=== PATIENT | male | born 1980 | race Caucasian/White ===

== ENCOUNTER 2021-03-26 17:57 | Inpatient (IN) | payer MEDICAID, OTHER ==
[~2021-03-26] VITALS: Ht 177.8 cm; Wt 226.7 kg
[2021-03-26] MEDS ORDERED: ONDANSETRON 2MG/ML, 2ML IVPush ONE (19:00)
[2021-03-26] MEDS ORDERED: SODIUM CHLORIDE FLUSH 10ML SYR IVF ONE (19:00)
[2021-03-26] MEDS ORDERED: MORPHINE SULFATE 4 MG/ML, 1ML ONE ×2 (19:09→20:16)
[2021-03-26] MEDS ORDERED: ONDANSETRON 2MG/ML, 2ML ONE (19:09)
[2021-03-26] MEDS: MORPHINE SULFATE 4 MG/ML, 1ML IVPush PRN ×2 (19:11→20:18)
[2021-03-26 19:14] LABS: BASOPHILS % (AUTO) 1 % (0-1); EOSINOPHILS % (AUTO) 0 % (1-7); LYMPHOCYTES % (AUTO) 9 % (22-44); MEAN CORPUSCULAR HEMOGLOBIN 31.1 pg (27.5-34.5); MEAN CORPUSCULAR HGB CONC 35.1 g/dL (33.2-36.2); MEAN PLATELET VOLUME 8.4 fL (7.4-10.4); MONOCYTES % (AUTO) 7 % (2-9); NEUTROPHILS % (AUTO) 84 % (42-75); PLATELET COUNT 361 x10^3/uL (130-400); RED BLOOD COUNT 3.75 x10^6/uL (4.38-5.82); RED CELL DISTRIBUTION WIDTH 13.9 % (9.4-14.8)
[2021-03-26 19:27] LABS: ALANINE AMINOTRANSFERASE 16 U/L (12-78); ALBUMIN 2.3 g/dL (3.4-5.0); ANION GAP 8 mmol/L (5-15); CALCIUM 8.5 mg/dL (8.5-10.1); CHLORIDE 99 mmol/L (98-107); CREATININE 1.13 mg/dL (0.7-1.3)
[2021-03-26 19:34] LABS: ALKALINE PHOSPHATASE 101 U/L (45-117); BILIRUBIN,TOTAL 0.7 mg/dL (0.2-1.0); TOTAL PROTEIN 7.9 g/dL (6.4-8.2)
[2021-03-26 19:52] LABS: C-REACTIVE PROTEIN, QUANT > 19.00 mg/dL (0.02-0.49); HCT (SEDRATE) 33.3 % (39.2-51.8)
[2021-03-26] MEDS ORDERED: OMNIPAQUE 350 MG/ML, 150 ML BOTTLE ONE (20:44)
--- NOTE | 2021-03-26 21:09 | NUR ---
PT LAYING IN BED, A/OX4, ALL NEEDS IN REACH, CALL LIGHT IN REACH, NAD AT THIS TIME, FAMILY AT BEDSIDE
[2021-03-26] MEDS ORDERED: VANCOMYCIN 2,500 MG in SODIUM CHLORIDE 0.9% 500 ML IV ONE (22:00)
[2021-03-26] MEDS ORDERED: VANCOMYCIN PER PHARMACY MC PRN (22:00)
[2021-03-26] MEDS ORDERED: CEFTRIAXONE 1,000 MG in DEXTROSE 5% 50 ML IVPB ONE (22:00)
[2021-03-26] MEDS ORDERED: SODIUM CHLORIDE 0.9% 1,000ML IVBOLUS ONE (22:00)
[2021-03-26 23:41] LABS: MICROSCOPIC INDICATED
[2021-03-27] MEDS ORDERED: VANCOMYCIN PER PHARMACY MC PRN
[2021-03-27 00:27] VITALS: BP 141/89
[2021-03-27] MEDS ORDERED: PHARMACOKINETIC CONSULTATION MC ONE (00:30)
[2021-03-27] MEDS ORDERED: BACLOFEN 10 MG TABLET PO PRN (00:30)
[2021-03-27] MEDS ORDERED: POLYETHYLENE GLYCOL 17 GM PACKET PO PRN (00:30)
[2021-03-27] MEDS ORDERED: ONDANSETRON 2MG/ML, 2ML IVPush PRN (00:30)
[2021-03-27] MEDS ORDERED: PHARMACOKINETIC MONITORING MC PRN (00:30)
[2021-03-27] MEDS ORDERED: BISACODYL 10 MG SUPP PR PRN (00:30)
[2021-03-27] MEDS: morphine SULFATE 10 MG/ML, 1ML IVPush PRN ×7 (00:47→18:24)
[2021-03-27] MEDS: HEPARIN 5,000 UNITS/ML, 1ML SQ SCH ×2 (01:00→07:51)
[2021-03-27] MEDS: LISINOPRIL 10 MG TABLET PO SCH ×3 (01:01→21:00)
[2021-03-27] MEDS: OXYcodone IR 5MG TABLET PO PRN ×4 (02:34→12:31)
[2021-03-27] MEDS: INSULIN LISPRO 100 UNITS/ML, PEN SQ-INSULIN SCH ×5 (02:35→21:00)
[2021-03-27] MEDS: SODIUM CHLORIDE 0.9% 1,000 ML IV SCH ×2 (03:12→08:30)
[2021-03-27 05:05] LABS: BASOPHILS % (AUTO) 0 % (0-1); EOSINOPHILS % (AUTO) 0 % (1-7); LYMPHOCYTES % (AUTO) 7 % (22-44); MEAN CORPUSCULAR HEMOGLOBIN 31.3 pg (27.5-34.5); MEAN CORPUSCULAR HGB CONC 34.5 g/dL (33.2-36.2); MEAN PLATELET VOLUME 8.5 fL (7.4-10.4); MONOCYTES % (AUTO) 8 % (2-9); NEUTROPHILS % (AUTO) 84 % (42-75); PLATELET COUNT 337 x10^3/uL (130-400); RED BLOOD COUNT 3.51 x10^6/uL (4.38-5.82); RED CELL DISTRIBUTION WIDTH 13.8 % (9.4-14.8)
[2021-03-27 05:17] LABS: ANION GAP 11 mmol/L (5-15); CALCIUM 8.4 mg/dL (8.5-10.1); CHLORIDE 98 mmol/L (98-107)
[2021-03-27 05:21] LABS: CHOL/HDL RATIO 4.6; CHOLESTEROL, TOTAL 133 mg/dL (140-239); CREATININE 1.18 mg/dL (0.7-1.3); HDL CHOL % 22 % (26-37); HDL CHOLESTEROL (DIRECT) 29 mg/dL (40-60); LDL CHOLESTEROL,CALCULATED 65 mg/dL (54-169); LDL/HDL RATIO 2.2 (0.5-3.0); TRIGLYCERIDES 196 mg/dL (50-200); VLDL CHOLESTEROL 39 mg/dL (0-25)
[2021-03-27] MEDS ORDERED: OMNIPAQUE 350 MG/ML, 150 ML BOTTLE ONE (07:38)
[2021-03-27] MEDS: SENNA/DOCUSATE TABLET PO SCH (07:53)
[2021-03-27] MEDS ORDERED: VANCOMYCIN 2,500 MG in SODIUM CHLORIDE 0.9% 500 ML IV SCH (08:00)
[2021-03-27 08:42] VITALS: BP 152/85
[2021-03-27 08:58] VITALS: BP 146/86
[2021-03-27] MEDS ORDERED: INSULIN GLARGINE 100 UNITS/ML, PEN SQ-INSULIN SCH (13:00)
[2021-03-27] MEDS ORDERED: PINK LADY ENEMA 490 ML BOTTLE PR ONE (13:00)
[2021-03-27] MEDS: DEXAMETHASONE 10 MG in SODIUM CHLORIDE 0.9% 50 ML IV SCH ×2 (13:14→19:00)
[2021-03-27] MEDS: FUROSEMIDE 40 MG TABLET PO SCH (13:14)
[2021-03-27 14:21] VITALS: BP 112/72
[2021-03-27] MEDS: VANCOMYCIN 2,500 MG in SODIUM CHLORIDE 0.9% 500 ML IV SCH (16:00)
[2021-03-27] MEDS ORDERED: LORazepam 2 MG/ML, 1ML IVPush ONE (16:00)
[2021-03-27] MEDS ORDERED: GADOTERATE 7.5 MMOL/15ML SYR ONE (16:59)
[2021-03-27] MEDS ORDERED: GADOTERATE 10 MMOL/20ML SYR ONE (16:59)
[2021-03-27] MEDS: ERTAPENEM 1 GM in SODIUM CHLORIDE 0.9% 50 ML IV SCH (20:00)
[2021-03-27] MEDS ORDERED: EPINEPHRINE 1 MG/ML, 1ML ONE (20:12)
[2021-03-27] MEDS ORDERED: BUPIVACAINE/PF 0.5% ONE (20:12)
[2021-03-27] MEDS ORDERED: THROMBIN 20,000 UNIT VIAL TP ONE (20:13)
[2021-03-27 20:36] VITALS: BP 140/86
[2021-03-27] MEDS ORDERED: CEFTRIAXONE 1,000 MG in DEXTROSE 5% 50 ML IVPB SCH (22:00)
[2021-03-27] MEDS ORDERED: FENTANYL PF 250 MCG/5ML ONE (23:16)
[2021-03-27] MEDS ORDERED: MIDAZOLAM 1 MG/ML, 2ML ONE (23:16)
[2021-03-27] MEDS ORDERED: PROPOFOL 10 MG/ML, 20ML ONE (23:16)
[2021-03-27] MEDS ORDERED: LIDOCAINE-MPF 2% ,5ML ONE (23:17)
[2021-03-27] MEDS ORDERED: ONDANSETRON 2MG/ML, 2ML ONE (23:17)
[2021-03-27] MEDS ORDERED: ROCURONIUM 10MG/ML,5ML ONE (23:17)
[2021-03-27] MEDS ORDERED: CEFAZOLIN 1,000 MG ONE (23:24)
[2021-03-27] MEDS ORDERED: SUGAMMADEX 200 MG/2 ML IVPush ONE (23:35)
[2021-03-28] MEDS ORDERED: CEFAZOLIN 1,000 MG IVPush ONE (00:59)
[2021-03-28] MEDS ORDERED: hydrALAzine 20 MG/ML, 1ML IV PRN (02:00)
[2021-03-28] MEDS ORDERED: OXYcodone 5 MG/5 ML ORAL.SOL UDC PO PRN (02:00)
[2021-03-28] MEDS ORDERED: DIAZEPAM 5 MG/ML, 2ML IVPush PRN (02:00)
[2021-03-28] MEDS ORDERED: ACETAMINOPHEN 325 MG TABLET PO PRN (02:00)
[2021-03-28] MEDS ORDERED: HYDROmorphone 1 MG/ML, 1ML INJ IVPush PRN (02:00)
[2021-03-28] MEDS ORDERED: METHOCARBAMOL 1,000 MG in DEXTROSE 5% 100 ML IV PRN (02:00)
[2021-03-28] MEDS ORDERED: ONDANSETRON 2MG/ML, 2ML IVPush PRN (02:00)
[2021-03-28] MEDS ORDERED: MEPERIDINE/PF 25MG/0.5ML IVPush PRN (02:00)
[2021-03-28] MEDS ORDERED: FENTANYL PF 100 MCG/2ML IV PRN (02:00)
[2021-03-28] MEDS ORDERED: LABETALOL 5MG/ML, 20ML IV PRN (02:00)
[2021-03-28] MEDS: DEXAMETHASONE 10 MG in SODIUM CHLORIDE 0.9% 50 ML IV SCH (03:55)
[2021-03-28] MEDS: VANCOMYCIN 2,500 MG in SODIUM CHLORIDE 0.9% 500 ML IV SCH (04:54)
[2021-03-28] MEDS: LABETALOL 5MG/ML, 20ML IVPush PRN ×3 (04:55→13:50)
[2021-03-28 05:58] LABS: BASOPHILS % (AUTO) 0 % (0-1); EOSINOPHILS % (AUTO) 0 % (1-7); LYMPHOCYTES % (AUTO) 5 % (22-44); MEAN CORPUSCULAR HGB CONC 34.1 g/dL (33.2-36.2); MEAN PLATELET VOLUME 8.2 fL (7.4-10.4); MONOCYTES % (AUTO) 4 % (2-9); NEUTROPHILS % (AUTO) 90 % (42-75); PLATELET COUNT 358 x10^3/uL (130-400); RED BLOOD COUNT 3.32 x10^6/uL (4.38-5.82); RED CELL DISTRIBUTION WIDTH 14.2 % (9.4-14.8)
[2021-03-28 06:04] LABS: ANION GAP 10 mmol/L (5-15); CALCIUM 8.1 mg/dL (8.5-10.1); CHLORIDE 99 mmol/L (98-107); CREATININE 1.67 mg/dL (0.7-1.3)
[2021-03-28] MEDS ORDERED: SODIUM CHLORIDE 0.9% 1,000ML IVBOLUS ONE (06:30)
[2021-03-28] MEDS: METOPROLOL TARTRATE 50 MG TAB PO SCH ×2 (06:42→18:07)
[2021-03-28] MEDS: INSULIN LISPRO 100 UNITS/ML, PEN SQ-INSULIN SCH ×7 (06:43→20:24)
[2021-03-28] MEDS ORDERED: PINK LADY ENEMA 490 ML BOTTLE PR ONE (09:00)
[2021-03-28] MEDS ORDERED: INSULIN GLARGINE 100 UNITS/ML, PEN SQ-INSULIN SCH ×2 (09:00→21:00)
[2021-03-28] MEDS: SENNA/DOCUSATE TABLET PO SCH (09:10)
[2021-03-28] MEDS: OXYcodone IR 5MG TABLET PO PRN ×3 (09:10→20:30)
[2021-03-28] MEDS: FUROSEMIDE 40 MG TABLET PO SCH (09:11)
[2021-03-28] MEDS: DEXAMETHASONE 4 MG/ML, 1ML IVPush SCH ×3 (09:57→23:15)
[2021-03-28] MEDS ORDERED: SODIUM CHLORIDE 0.9% IVPB SCH (10:00)
[2021-03-28] MEDS ORDERED: DAPTOMYCIN IVPB SCH (10:00)
[2021-03-28] MEDS: LACTULOSE 20 GM/30 ML UDC PO SCH ×2 (10:09→20:17)
[2021-03-28] MEDS: hydrALAzine 20 MG/ML, 1ML IV PRN (10:31)
[2021-03-28] MEDS: morphine SULFATE 10 MG/ML, 1ML IVPush PRN (11:32)
[2021-03-28] MEDS: ERTAPENEM 1 GM in SODIUM CHLORIDE 0.9% 50 ML IV SCH (20:17)
[2021-03-28] MEDS ORDERED: ALBUTEROL SULFATE 2.5 MG/3 ML ONE (23:14)
[2021-03-28] MEDS ORDERED: ALBUTEROL SULFATE 2.5 MG/3 ML NPPB PRN (23:30)
[2021-03-29] MEDS: DEXAMETHASONE 4 MG/ML, 1ML IVPush SCH ×4 (04:25→20:22)
[2021-03-29] MEDS: LABETALOL 5MG/ML, 20ML IVPush PRN (04:26)
[2021-03-29 04:32] LABS: BASOPHILS % (AUTO) 0 % (0-1); EOSINOPHILS % (AUTO) 0 % (1-7); LYMPHOCYTES % (AUTO) 4 % (22-44); MEAN CORPUSCULAR HEMOGLOBIN 30.5 pg (27.5-34.5); MEAN CORPUSCULAR HGB CONC 33.5 g/dL (33.2-36.2); MEAN PLATELET VOLUME 8.1 fL (7.4-10.4); MONOCYTES % (AUTO) 4 % (2-9); NEUTROPHILS % (AUTO) 91 % (42-75); PLATELET COUNT 382 x10^3/uL (130-400); RED BLOOD COUNT 3.48 x10^6/uL (4.38-5.82); RED CELL DISTRIBUTION WIDTH 13.9 % (9.4-14.8)
[2021-03-29] MEDS: OXYcodone IR 5MG TABLET PO PRN ×3 (04:34→18:13)
[2021-03-29 04:48] LABS: ANION GAP 9 mmol/L (5-15); CALCIUM 8.1 mg/dL (8.5-10.1); CHLORIDE 103 mmol/L (98-107)
[2021-03-29 04:50] LABS: CREATININE 1.53 mg/dL (0.7-1.3)
[2021-03-29] MEDS: METOPROLOL TARTRATE 50 MG TAB PO SCH ×2 (06:07→17:41)
[2021-03-29] MEDS: INSULIN LISPRO 100 UNITS/ML, PEN SQ-INSULIN SCH ×8 (06:08→20:30)
[2021-03-29] MEDS ORDERED: INSULIN LISPRO 100 UNITS/ML, PEN SQ-INSULIN SCH (07:00)
[2021-03-29] MEDS: SENNA/DOCUSATE TABLET PO SCH (08:48)
[2021-03-29] MEDS: LACTULOSE 20 GM/30 ML UDC PO SCH ×2 (08:49→20:22)
[2021-03-29] MEDS ORDERED: INSULIN GLARGINE 100 UNITS/ML, PEN SQ-INSULIN SCH ×3 (09:00→21:00)
[2021-03-29] MEDS: CEFTRIAXONE 2 GM in DEXTROSE 5% 50 ML IVPB SCH ×2 (09:29→20:25)
[2021-03-30] MEDS: ACETAMINOPHEN 325 MG TABLET PO PRN ×4 (00:10→21:21)
[2021-03-30] MEDS: OXYcodone IR 5MG TABLET PO PRN ×5 (00:11→21:23)
[2021-03-30] MEDS: DEXAMETHASONE 4 MG/ML, 1ML IVPush SCH ×4 (04:20→21:20)
[2021-03-30 04:34] LABS: BASOPHILS % (AUTO) 0 % (0-1); EOSINOPHILS % (AUTO) 0 % (1-7); LYMPHOCYTES % (AUTO) 8 % (22-44); MEAN CORPUSCULAR HEMOGLOBIN 30.6 pg (27.5-34.5); MEAN CORPUSCULAR HGB CONC 33.8 g/dL (33.2-36.2); MEAN PLATELET VOLUME 7.9 fL (7.4-10.4); MONOCYTES % (AUTO) 7 % (2-9); NEUTROPHILS % (AUTO) 86 % (42-75); PLATELET COUNT 395 x10^3/uL (130-400); RED BLOOD COUNT 3.28 x10^6/uL (4.38-5.82); RED CELL DISTRIBUTION WIDTH 13.9 % (9.4-14.8)
[2021-03-30 04:45] LABS: ANION GAP 10 mmol/L (5-15); CHLORIDE 101 mmol/L (98-107); CREATININE 1.51 mg/dL (0.7-1.3)
[2021-03-30] MEDS: METOPROLOL TARTRATE 50 MG TAB PO SCH ×2 (05:46→17:13)
[2021-03-30] MEDS: INSULIN LISPRO 100 UNITS/ML, PEN SQ-INSULIN SCH ×7 (05:49→20:48)
[2021-03-30] MEDS: LIDODERM 5% PATCH TD SCH (08:27)
[2021-03-30] MEDS: METHYLNALTREXONE 12 MG/0.6 ML SYR SQ SCH (08:27)
[2021-03-30] MEDS: CEFTRIAXONE 2 GM in DEXTROSE 5% 50 ML IVPB SCH ×2 (08:29→20:42)
[2021-03-30] MEDS: LACTULOSE 20 GM/30 ML UDC PO SCH ×2 (08:29→20:42)
[2021-03-30] MEDS: SENNA/DOCUSATE TABLET PO SCH (08:43)
[2021-03-30] MEDS ORDERED: INSULIN GLARGINE 100 UNITS/ML, PEN SQ-INSULIN SCH (09:00)
[2021-03-30] MEDS: LIDODERM REMOVE PATCH NOTE XX SCH (20:30)
[2021-03-30] MEDS: INSULIN GLARGINE 100 UNITS/ML, PEN SQ-INSULIN SCH (20:49)
[2021-03-30] MEDS: BACITRACIN OINT 500U/GM, 28GM TP SCH (20:51)
[2021-03-31] MEDS: OXYcodone IR 5MG TABLET PO PRN ×6 (02:05→22:30)
[2021-03-31] MEDS: ACETAMINOPHEN 325 MG TABLET PO PRN ×6 (02:05→22:30)
[2021-03-31] MEDS: DEXAMETHASONE 4 MG/ML, 1ML IVPush SCH ×4 (03:27→21:01)
[2021-03-31] MEDS: METOPROLOL TARTRATE 50 MG TAB PO SCH ×2 (06:08→17:55)
[2021-03-31] MEDS: INSULIN LISPRO 100 UNITS/ML, PEN SQ-INSULIN SCH ×7 (06:11→21:00)
[2021-03-31] MEDS ORDERED: DEXAMETHASONE 4 MG/ML, 5ML ONE (08:31)
[2021-03-31] MEDS: LIDODERM 5% PATCH TD SCH (08:39)
[2021-03-31] MEDS: LACTULOSE 20 GM/30 ML UDC PO SCH ×2 (08:40→20:59)
[2021-03-31] MEDS: SENNA/DOCUSATE TABLET PO SCH (08:40)
[2021-03-31] MEDS: INSULIN GLARGINE 100 UNITS/ML, PEN SQ-INSULIN SCH ×3 (08:41→21:01)
[2021-03-31] MEDS: BACITRACIN OINT 500U/GM, 28GM TP SCH ×2 (08:42→21:01)
[2021-03-31] MEDS: CEFTRIAXONE 2 GM in DEXTROSE 5% 50 ML IVPB SCH ×2 (08:43→20:59)
[2021-03-31] MEDS ORDERED: OMNIPAQUE 350 MG/ML, 150 ML BOTTLE ONE (11:16)
[2021-03-31] MEDS: LIDODERM REMOVE PATCH NOTE XX SCH (20:30)
[2021-03-31] MEDS: morphine SULFATE 10 MG/ML, 1ML IVPush PRN (21:10)
[2021-03-31] MEDS: hydrALAzine 20 MG/ML, 1ML IV PRN (22:43)
[2021-04-01 03:07] LABS: MEAN CORPUSCULAR HGB CONC 33.9 g/dL (33.2-36.2); PLATELET COUNT 404 x10^3/uL (130-400); RED BLOOD COUNT 3.75 x10^6/uL (4.38-5.82); RED CELL DISTRIBUTION WIDTH 13.7 % (9.4-14.8)
[2021-04-01 03:17] LABS: ALANINE AMINOTRANSFERASE 16 U/L (12-78); ALBUMIN 2.1 g/dL (3.4-5.0); ANION GAP 6 mmol/L (5-15); CALCIUM 8.3 mg/dL (8.5-10.1); CHLORIDE 104 mmol/L (98-107); CREATININE 1.12 mg/dL (0.7-1.3)
[2021-04-01 03:20] LABS: ALKALINE PHOSPHATASE 73 U/L (45-117); BILIRUBIN,TOTAL 0.2 mg/dL (0.2-1.0); TOTAL PROTEIN 6.8 g/dL (6.4-8.2)
[2021-04-01 03:26] LABS: <PLATELET ESTIMATE> INCREASED; <PLT MORPHOLOGY> NORMAL PLT MORPH; <RBC MORPHOLOGY> NORMAL; BAND#(MANUAL) 0.36 x10^3/uL; BANDS%(MANUAL) 2 % (0-7); LYMPH#(MANUAL) 1.42 x10^3/uL (1-3.4); LYMPHS% (MANUAL) 8 % (22-44); MONOS#(MANUAL) 1.42 x10^3/uL (0.3-2.7); MONOS% (MANUAL) 8 % (2-9); MYELOCYTES# (MANUAL) 0.36 x10^3/uL (0-0); MYELOCYTES% (MANUAL) 2 % (0-0); SEG#(MANUAL) 14.24 x10^3/uL (1.8-6.8); SEGS% (MANUAL) 80 % (42-75)
[2021-04-01] MEDS: DEXAMETHASONE 4 MG/ML, 1ML IVPush SCH (03:30)
[2021-04-01] MEDS: OXYcodone IR 5MG TABLET PO PRN ×5 (05:16→23:08)
[2021-04-01] MEDS: INSULIN LISPRO 100 UNITS/ML, PEN SQ-INSULIN SCH ×4 (05:57→21:15)
[2021-04-01] MEDS: METOPROLOL TARTRATE 50 MG TAB PO SCH ×2 (05:57→17:13)
[2021-04-01] MEDS ORDERED: MAGNESIUM CITRATE 300ML ORAL SOL PO ONE (07:30)
[2021-04-01] MEDS: LACTULOSE 20 GM/30 ML UDC PO SCH (08:19)
[2021-04-01] MEDS: LISINOPRIL 10 MG TABLET PO SCH ×2 (08:20→21:00)
[2021-04-01] MEDS: LIDODERM 5% PATCH TD SCH (08:20)
[2021-04-01] MEDS: METHYLNALTREXONE 12 MG/0.6 ML SYR SQ SCH (08:20)
[2021-04-01] MEDS: SENNA/DOCUSATE TABLET PO SCH (08:21)
[2021-04-01] MEDS: INSULIN GLARGINE 100 UNITS/ML, PEN SQ-INSULIN SCH ×3 (08:21→21:14)
[2021-04-01] MEDS: BACITRACIN OINT 500U/GM, 28GM TP SCH ×2 (08:23→21:00)
[2021-04-01] MEDS: CEFTRIAXONE 2 GM in DEXTROSE 5% 50 ML IVPB SCH ×2 (08:30→21:00)
[2021-04-01] MEDS: ENOXAPARIN 30 MG/0.3 ML SQ SCH (12:20)
[2021-04-01] MEDS ORDERED: INSULIN GLARGINE 100 UNITS/ML, PEN SQ-INSULIN SCH (14:00)
[2021-04-01] MEDS: METOCLOPRAMIDE 5 MG/ML, 2ML IVPush SCH ×2 (14:45→21:00)
[2021-04-01] MEDS: morphine SULFATE 10 MG/ML, 1ML IVPush PRN (17:04)
[2021-04-01 17:13] VITALS: BP 108/71
[2021-04-01 19:37] VITALS: BP 110/71
[2021-04-01] MEDS: LIDODERM REMOVE PATCH NOTE XX SCH (20:30)
[2021-04-01] MEDS ORDERED: BISACODYL 10 MG SUPP PR SCH (21:00)
[2021-04-01] MEDS ORDERED: POLYETHYLENE GLYCOL 17 GM PACKET PO SCH (21:00)
[2021-04-02] MEDS: ENOXAPARIN 30 MG/0.3 ML SQ SCH ×2 (00:23→16:10)
[2021-04-02] MEDS: morphine SULFATE 10 MG/ML, 1ML IVPush PRN (02:16)
[2021-04-02] MEDS: METOCLOPRAMIDE 5 MG/ML, 2ML IVPush SCH ×2 (03:02→09:38)
[2021-04-02 03:06] VITALS: BP 101/69
[2021-04-02] MEDS ORDERED: OMNIPAQUE 350 MG/ML, 100ML BOTTLE ONE (03:13)
[2021-04-02] MEDS ORDERED: HYDROmorphone 2 MG/ML, 1ML ONE (04:05)
[2021-04-02] MEDS: HYDROmorphone 2 MG/ML, 1ML IVPush PRN ×2 (04:08→15:51)
[2021-04-02] MEDS: METOPROLOL TARTRATE 50 MG TAB PO SCH (04:29)
[2021-04-02] MEDS: INSULIN LISPRO 100 UNITS/ML, PEN SQ-INSULIN SCH ×4 (07:00→21:45)
[2021-04-02 07:54] VITALS: BP 93/65
[2021-04-02 09:12] VITALS: BP 96/69
[2021-04-02] MEDS: POLYETHYLENE GLYCOL 17 GM PACKET PO SCH ×2 (09:37→11:00)
[2021-04-02] MEDS: LIDODERM 5% PATCH TD SCH (09:37)
[2021-04-02] MEDS: SENNA/DOCUSATE TABLET PO SCH (09:38)
[2021-04-02] MEDS: BACITRACIN OINT 500U/GM, 28GM TP SCH ×2 (09:38→21:14)
[2021-04-02] MEDS: CEFTRIAXONE 2 GM in DEXTROSE 5% 50 ML IVPB SCH (09:38)
[2021-04-02] MEDS: BISACODYL 10 MG SUPP PR SCH ×2 (10:00→16:00)
[2021-04-02] MEDS: OXYcodone IR 5MG TABLET PO PRN (10:04)
[2021-04-02] MEDS ORDERED: FENTANYL PF 250 MCG/5ML ONE (13:05)
[2021-04-02] MEDS ORDERED: MIDAZOLAM 1 MG/ML, 2ML ONE (13:05)
[2021-04-02] MEDS ORDERED: VASOPRESSIN 20 UNIT/ML, 1ML ONE (13:28)
[2021-04-02] MEDS ORDERED: EPHEDRINE 50 MG/ML, 1ML ONE (13:28)
[2021-04-02] MEDS ORDERED: PHENYLEPHRINE 10 MG/ML ONE (13:28)
[2021-04-02] MEDS ORDERED: ALBUMIN HUMAN 5% 500 ML ONE (13:48)
[2021-04-02] MEDS ORDERED: ROCURONIUM 10MG/ML,5ML ONE ×2 (14:10→15:03)
[2021-04-02] MEDS ORDERED: MIDAZOLAM 1 MG/ML, 5ML ONE (14:50)
[2021-04-02] MEDS ORDERED: NOREPINEPHRINE 1 MG/ML, 4ML ONE (15:24)
[2021-04-02] MEDS ORDERED: PROPOFOL 100 ML IV ONE (15:58)
[2021-04-02] MEDS ORDERED: DEXMEDETOMIDINE 400 MCG in SODIUM CHLORIDE 0.9% 96 ML IV PRN (16:00)
[2021-04-02] MEDS: MEROPENEM 1 GM in SODIUM CHLORIDE 0.9% 100 ML IV SCH (16:10)
[2021-04-02] MEDS: PROPOFOL 100 ML IV PRN ×3 (16:25→19:33)
[2021-04-02] MEDS: MIDAZOLAM HCL 50 MG in SODIUM CHLORIDE 0.9% 40 ML IV PRN (16:34)
[2021-04-02] MEDS: FENTANYL PF 1,000 MCG in SODIUM CHLORIDE 0.9% 80 ML IV PRN (16:39)
[2021-04-02] MEDS: NOREPINEPHRINE 8 MG in SODIUM CHLORIDE 0.9% 242 ML IV PRN ×3 (16:42→23:41)
[2021-04-02] MEDS: LINEZOLID PMX 600MG/300ML 300 ML IV SCH (16:48)
[2021-04-02] MEDS ORDERED: NOREPINEPHRINE 8 MG in SODIUM CHLORIDE 0.9% 242 ML IV PRN (17:00)
[2021-04-02] MEDS ORDERED: LACTATED RINGERS 1,000 ML IV SCH (17:00)
[2021-04-02] MEDS ORDERED: PHARMACY MAY ADJ FOR RENAL FX MC SCH (17:00)
[2021-04-02] MEDS ORDERED: LIDOCAINE-MPF 1%, 2ML ENDO PRN (17:00)
[2021-04-02] MEDS: LIDODERM REMOVE PATCH NOTE XX SCH (20:30)
[2021-04-02] MEDS ORDERED: INSULIN GLARGINE 100 UNITS/ML, PEN SQ-INSULIN SCH (21:00)
[2021-04-03] MEDS: MEROPENEM 1 GM in SODIUM CHLORIDE 0.9% 100 ML IV SCH ×4 (00:02→23:23)
[2021-04-03] MEDS: NOREPINEPHRINE 32 MG in SODIUM CHLORIDE 0.9% 242 ML IV PRN ×2 (00:10→13:37)
[2021-04-03] MEDS: PROPOFOL 100 ML IV PRN ×14 (00:10→21:52)
[2021-04-03] MEDS: LINEZOLID PMX 600MG/300ML 300 ML IV SCH ×2 (00:53→12:29)
[2021-04-03] MEDS: FENTANYL PF 1,000 MCG in SODIUM CHLORIDE 0.9% 80 ML IV PRN ×3 (01:46→21:51)
[2021-04-03] MEDS ORDERED: SODIUM CHLORIDE 0.9% 1,000 ML IV SCH ×3 (03:00→08:00)
[2021-04-03] MEDS: ENOXAPARIN 30 MG/0.3 ML SQ SCH ×2 (04:51→15:58)
[2021-04-03 05:21] LABS: MEAN CORPUSCULAR HEMOGLOBIN 30.3 pg (27.5-34.5); MEAN CORPUSCULAR HGB CONC 32.7 g/dL (33.2-36.2); MEAN PLATELET VOLUME 9.1 fL (7.4-10.4); PLATELET COUNT 495 x10^3/uL (130-400); RED BLOOD COUNT 3.83 x10^6/uL (4.38-5.82); RED CELL DISTRIBUTION WIDTH 14.8 % (9.4-14.8)
[2021-04-03 05:23] LABS: HCT (SEDRATE) 35.3 % (39.2-51.8)
[2021-04-03 05:31] LABS: ALANINE AMINOTRANSFERASE 16 U/L (12-78); ALBUMIN 1.6 g/dL (3.4-5.0); ANION GAP 11 mmol/L (5-15); CALCIUM 7.7 mg/dL (8.5-10.1); CHLORIDE 99 mmol/L (98-107); CREATININE 2.72 mg/dL (0.7-1.3)
[2021-04-03 05:41] LABS: ALKALINE PHOSPHATASE 84 U/L (45-117); BILIRUBIN,TOTAL 1.4 mg/dL (0.2-1.0); TOTAL PROTEIN 5.9 g/dL (6.4-8.2)
[2021-04-03 05:52] LABS: C-REACTIVE PROTEIN, QUANT > 19.00 mg/dL (0.02-0.49)
[2021-04-03 05:54] LABS: BAND#(MANUAL) 9.24 x10^3/uL; BANDS%(MANUAL) 24 % (0-7); LYMPHS% (MANUAL) 7 % (22-44); METAMYELOCYTES# (MANUAL) 1.16 x10^3/uL (0-0); METAMYELOCYTES% (MANUAL) 3 % (0-1); MONOS#(MANUAL) 2.31 x10^3/uL (0.3-2.7); MONOS% (MANUAL) 6 % (2-9); SEGS% (MANUAL) 60 % (42-75)
[2021-04-03 05:55] LABS: <PLATELET ESTIMATE> INCREASED; LARGE PLATELETS 1+; PMNS WITH VACUOLES 1+
[2021-04-03 05:56] LABS: POLYCHROMASIA 1+
[2021-04-03] MEDS: INSULIN LISPRO 100 UNITS/ML, PEN SQ-INSULIN SCH ×3 (05:59→21:59)
[2021-04-03] MEDS: MIDAZOLAM HCL 50 MG in SODIUM CHLORIDE 0.9% 40 ML IV PRN ×3 (06:30→21:51)
[2021-04-03] MEDS ORDERED: TPN PER PHARMACY MC PRN (07:30)
[2021-04-03] MEDS ORDERED: SODIUM BICARBONATE 8.4% 75 MEQ in SODIUM CHLORIDE 0.45% 1,000 ML IV SCH ×2 (08:30→17:00)
[2021-04-03] MEDS: VASOPRESSIN 20 UNIT in SODIUM CHLORIDE 0.9% 99 ML IV PRN ×2 (08:57→15:21)
[2021-04-03] MEDS: LIDODERM 5% PATCH TD SCH (09:06)
[2021-04-03] MEDS: INSULIN GLARGINE 100 UNITS/ML, PEN SQ-INSULIN SCH ×2 (09:11→21:59)
[2021-04-03] MEDS: BACITRACIN OINT 500U/GM, 28GM TP SCH ×2 (09:27→21:54)
[2021-04-03] MEDS: ACETAMINOPHEN 325 MG TABLET PO PRN (10:59)
[2021-04-03] MEDS ORDERED: INSULIN LISPRO 100 UNITS/ML, PEN 3ML SS HIGH DOSE SQ-INSULIN SCH (12:00)
[2021-04-03 14:13] LABS: ANION GAP 13 mmol/L (5-15); CALCIUM 7.3 mg/dL (8.5-10.1); CHLORIDE 99 mmol/L (98-107); CREATININE 2.72 mg/dL (0.7-1.3)
[2021-04-03] MEDS ORDERED: SODIUM BICARB 8.4%, 50ML SYRINGE IVPush ONE (15:00)
[2021-04-03] MEDS: FILTER, DISP 1.2 MICRON FOR TPN/PVN IV PRN (16:26)
[2021-04-03] MEDS ORDERED: DEXTROSE 70% IV SCH (17:00)
[2021-04-03] MEDS ORDERED: AMINO ACID 10% IV SCH (17:00)
[2021-04-03] MEDS ORDERED: DEXTROSE 10% 500 ML IV PRN (17:00)
[2021-04-03] MEDS ORDERED: TPN PER PHARMACY MC SCH (17:00)
[2021-04-03] MEDS ORDERED: [UNRECOGNIZED DRUG - OTHER] IV SCH (17:00)
[2021-04-03] MEDS ORDERED: DEXTROSE 50%, 50ML SYRINGE IVPush PRN (17:00)
[2021-04-03] MEDS ORDERED: STERILE WATER IV SCH (17:00)
[2021-04-03] MEDS: SODIUM BICARB 8.4%,50ML SYR. 150 MEQ in DEXTROSE 5% 1,000 ML IV SCH ×2 (17:04→23:25)
[2021-04-03] MEDS: ALBUMIN HUMAN 25% 100 ML IV PRN (17:07)
[2021-04-03] MEDS: METRONIDAZOLE PMX 500MG/100ML 100 ML IV SCH ×2 (17:43→22:02)
[2021-04-03] MEDS: LIDODERM REMOVE PATCH NOTE XX SCH (20:30)
[2021-04-03] MEDS: NOREPINEPHRINE 32 MG in SODIUM CHLORIDE 0.9% 218 ML IV PRN (21:51)
[2021-04-04] MEDS: LINEZOLID PMX 600MG/300ML 300 ML IV SCH ×2 (00:17→12:40)
[2021-04-04] MEDS: NOREPINEPHRINE 32 MG in SODIUM CHLORIDE 0.9% 218 ML IV PRN ×4 (00:17→22:09)
[2021-04-04] MEDS: INSULIN LISPRO 100 UNITS/ML, PEN SQ-INSULIN SCH ×2 (00:21→04:29)
[2021-04-04] MEDS: VASOPRESSIN 20 UNIT in SODIUM CHLORIDE 0.9% 99 ML IV PRN ×3 (00:30→20:10)
[2021-04-04] MEDS: PROPOFOL 100 ML IV PRN ×11 (02:48→23:33)
[2021-04-04] MEDS: METRONIDAZOLE PMX 500MG/100ML 100 ML IV SCH ×4 (04:13→23:30)
[2021-04-04] MEDS: ENOXAPARIN 30 MG/0.3 ML SQ SCH (04:13)
[2021-04-04 04:33] LABS: MEAN CORPUSCULAR HEMOGLOBIN 30.6 pg (27.5-34.5); MEAN CORPUSCULAR HGB CONC 33.3 g/dL (33.2-36.2); MEAN PLATELET VOLUME 9.3 fL (7.4-10.4); PLATELET COUNT 411 x10^3/uL (130-400); RED BLOOD COUNT 3.67 x10^6/uL (4.38-5.82); RED CELL DISTRIBUTION WIDTH 15.4 % (9.4-14.8)
[2021-04-04 04:44] LABS: ALANINE AMINOTRANSFERASE 16 U/L (12-78); ALBUMIN 1.4 g/dL (3.4-5.0); ANION GAP 14 mmol/L (5-15); CALCIUM 6.9 mg/dL (8.5-10.1); CHLORIDE 94 mmol/L (98-107); CREATININE 2.68 mg/dL (0.7-1.3)
[2021-04-04 04:46] LABS: ALKALINE PHOSPHATASE 141 U/L (45-117); BILIRUBIN,TOTAL 2.7 mg/dL (0.2-1.0); TOTAL PROTEIN 5.7 g/dL (6.4-8.2)
[2021-04-04 05:13] LABS: ANISOCYTOSIS 1+; BANDS%(MANUAL) 18 % (0-7); METAMYELOCYTES# (MANUAL) 0.33 x10^3/uL (0-0); METAMYELOCYTES% (MANUAL) 1 % (0-1); MONOS#(MANUAL) 2.62 x10^3/uL (0.3-2.7); MONOS% (MANUAL) 8 % (2-9); POLYCHROMASIA 1+; SEG#(MANUAL) 23.94 x10^3/uL (1.8-6.8); SEGS% (MANUAL) 73 % (42-75)
[2021-04-04 05:14] LABS: PMNS WITH VACUOLES 1+
[2021-04-04 05:15] LABS: <PLATELET ESTIMATE> INCREASED; LARGE PLATELETS 1+
[2021-04-04] MEDS: SODIUM BICARB 8.4%,50ML SYR. 150 MEQ in DEXTROSE 5% 1,000 ML IV SCH (05:33)
[2021-04-04] MEDS: HEPARIN 5,000 UNITS/ML, 1ML SQ SCH ×3 (07:30→20:48)
[2021-04-04] MEDS: BACITRACIN OINT 500U/GM, 28GM TP SCH ×2 (07:51→21:18)
[2021-04-04] MEDS: MEROPENEM 1 GM in SODIUM CHLORIDE 0.9% 100 ML IV SCH ×2 (07:51→16:03)
[2021-04-04] MEDS: LIDODERM 5% PATCH TD SCH (07:51)
[2021-04-04] MEDS: REGULAR INSULIN 100 UNITS in SODIUM CHLORIDE 0.9% 99 ML IV PRN ×2 (08:28→18:18)
[2021-04-04] MEDS: PANTOPRAZOLE 40 MG IV IVPush SCH ×2 (10:03→21:18)
[2021-04-04] MEDS: FENTANYL PF 1,000 MCG in SODIUM CHLORIDE 0.9% 80 ML IV PRN (11:56)
[2021-04-04] MEDS ORDERED: STERILE WATER IV SCH (17:00)
[2021-04-04] MEDS ORDERED: DEXTROSE 70% IV SCH (17:00)
[2021-04-04] MEDS ORDERED: AMINO ACID 10% IV SCH (17:00)
[2021-04-04] MEDS ORDERED: [UNRECOGNIZED DRUG - OTHER] IV SCH (17:00)
[2021-04-04] MEDS: FILTER, DISP 1.2 MICRON FOR TPN/PVN IV PRN (17:01)
[2021-04-04] MEDS: LIDODERM REMOVE PATCH NOTE XX SCH (20:30)
[2021-04-05] MEDS: FENTANYL PF 1,000 MCG in SODIUM CHLORIDE 0.9% 80 ML IV PRN ×3 (00:18→19:04)
[2021-04-05] MEDS: MEROPENEM 1 GM in SODIUM CHLORIDE 0.9% 100 ML IV SCH ×3 (00:22→15:45)
[2021-04-05] MEDS: PROPOFOL 100 ML IV PRN ×4 (01:32→07:29)
[2021-04-05] MEDS: LINEZOLID PMX 600MG/300ML 300 ML IV SCH ×2 (01:32→13:05)
[2021-04-05] MEDS: REGULAR INSULIN 100 UNITS in SODIUM CHLORIDE 0.9% 99 ML IV PRN ×2 (02:47→13:56)
[2021-04-05] MEDS: VASOPRESSIN 20 UNIT in SODIUM CHLORIDE 0.9% 99 ML IV PRN ×3 (04:17→22:13)
[2021-04-05] MEDS: METRONIDAZOLE PMX 500MG/100ML 100 ML IV SCH ×4 (05:27→23:00)
[2021-04-05 05:44] LABS: ANION GAP 8 mmol/L (5-15); CALCIUM 6.9 mg/dL (8.5-10.1); CHLORIDE 98 mmol/L (98-107); CREATININE 2.69 mg/dL (0.7-1.3); TRIGLYCERIDES 607 mg/dL (50-200)
[2021-04-05 05:48] LABS: MEAN CORPUSCULAR HEMOGLOBIN 30.2 pg (27.5-34.5); MEAN CORPUSCULAR HGB CONC 33.1 g/dL (33.2-36.2); MEAN PLATELET VOLUME 8.9 fL (7.4-10.4); PLATELET COUNT 352 x10^3/uL (130-400); RED BLOOD COUNT 3.31 x10^6/uL (4.38-5.82); RED CELL DISTRIBUTION WIDTH 15.1 % (9.4-14.8)
[2021-04-05 06:28] LABS: <PLATELET ESTIMATE> ADEQUATE; <PLT MORPHOLOGY> NORMAL PLT MORPH; ANISOCYTOSIS 1+; BAND#(MANUAL) 2.57 x10^3/uL; BANDS%(MANUAL) 11 % (0-7); EOS#(MANUAL) 0.47 x10^3/uL (0.0-0.4); EOS% (MANUAL) 2 % (1-7); LYMPH#(MANUAL) 0.47 x10^3/uL (1-3.4); LYMPHS% (MANUAL) 2 % (22-44); MONOS% (MANUAL) 3 % (2-9); POLYCHROMASIA 1+; SEG#(MANUAL) 19.19 x10^3/uL (1.8-6.8); SEGS% (MANUAL) 82 % (42-75)
[2021-04-05] MEDS: NOREPINEPHRINE 32 MG in SODIUM CHLORIDE 0.9% 218 ML IV PRN (07:29)
[2021-04-05] MEDS: HEPARIN 5,000 UNITS/ML, 1ML SQ SCH ×2 (09:00→17:00)
[2021-04-05] MEDS: PANTOPRAZOLE 40 MG IV IVPush SCH ×2 (09:10→20:02)
[2021-04-05] MEDS: LIDODERM 5% PATCH TD SCH (09:11)
[2021-04-05] MEDS: MIDAZOLAM HCL 50 MG in SODIUM CHLORIDE 0.9% 40 ML IV PRN ×2 (10:23→16:36)
[2021-04-05 13:24] LABS: INTERNATIONAL NORMALIZED RATIO 1.05 (0.93-1.1); PROTHROMBIN TIME 11.2 Seconds (9.6-11.5)
[2021-04-05 13:29] LABS: BILIRUBIN, DIRECT 1.7 mg/dL (0.1-0.2)
[2021-04-05 13:31] LABS: BILIRUBIN,INDIRECT 0.3 mg/dL (0.0-2.0); TOTAL PROTEIN 5.2 g/dL (6.4-8.2)
[2021-04-05] MEDS: FILTER, DISP 1.2 MICRON FOR TPN/PVN IV PRN (15:46)
[2021-04-05] MEDS ORDERED: [UNRECOGNIZED DRUG - OTHER] IV SCH (17:00)
[2021-04-05] MEDS ORDERED: DEXTROSE 70% IV SCH (17:00)
[2021-04-05] MEDS ORDERED: AMINO ACID 10% IV SCH (17:00)
[2021-04-05] MEDS ORDERED: FAT EMULSIONS IV SCH (17:00)
[2021-04-05] MEDS: LIDODERM REMOVE PATCH NOTE XX SCH (20:03)
[2021-04-06] MEDS: MEROPENEM 1 GM in SODIUM CHLORIDE 0.9% 100 ML IV SCH ×3 (00:26→19:50)
[2021-04-06] MEDS: HEPARIN 5,000 UNITS/ML, 1ML SQ SCH (01:00)
[2021-04-06] MEDS: LINEZOLID PMX 600MG/300ML 300 ML IV SCH ×2 (01:07→13:51)
[2021-04-06] MEDS: NOREPINEPHRINE 32 MG in SODIUM CHLORIDE 0.9% 218 ML IV PRN ×2 (01:08→23:10)
[2021-04-06 04:34] LABS: BASOPHILS % (AUTO) 0 % (0-1); EOSINOPHILS % (AUTO) 2 % (1-7); LYMPHOCYTES % (AUTO) 5 % (22-44); MEAN CORPUSCULAR HEMOGLOBIN 30.2 pg (27.5-34.5); MEAN PLATELET VOLUME 8.8 fL (7.4-10.4); MONOCYTES % (AUTO) 11 % (2-9); NEUTROPHILS % (AUTO) 83 % (42-75); PLATELET COUNT 256 x10^3/uL (130-400); RED BLOOD COUNT 2.93 x10^6/uL (4.38-5.82); RED CELL DISTRIBUTION WIDTH 15.1 % (9.4-14.8)
[2021-04-06 04:47] LABS: ANION GAP 8 mmol/L (5-15); CALCIUM 7.2 mg/dL (8.5-10.1); CHLORIDE 99 mmol/L (98-107)
[2021-04-06 04:49] LABS: CREATININE 2.79 mg/dL (0.7-1.3)
[2021-04-06] MEDS: VASOPRESSIN 20 UNIT in SODIUM CHLORIDE 0.9% 99 ML IV PRN (05:20)
[2021-04-06] MEDS: METRONIDAZOLE PMX 500MG/100ML 100 ML IV SCH (06:05)
[2021-04-06] MEDS: REGULAR INSULIN 100 UNITS in SODIUM CHLORIDE 0.9% 99 ML IV PRN ×3 (06:07→23:11)
[2021-04-06] MEDS: FENTANYL PF 1,000 MCG in SODIUM CHLORIDE 0.9% 80 ML IV PRN ×3 (06:16→22:38)
[2021-04-06] MEDS: LIDODERM 5% PATCH TD SCH (08:40)
[2021-04-06] MEDS: PANTOPRAZOLE 40 MG IV IVPush SCH ×2 (08:40→21:24)
[2021-04-06] MEDS: MIDAZOLAM HCL 50 MG in SODIUM CHLORIDE 0.9% 40 ML IV PRN ×2 (12:46→23:10)
--- NOTE | 2021-04-06 13:49 | NUR ---
Tube Feeds: Vital HP at 10 ml/hr/trickle feeds Addendum: 04/06/21 at [address] Amended: Links added.
[2021-04-06] MEDS ORDERED: VECURONIUM 10 MG ONE (14:36)
[2021-04-06] MEDS ORDERED: FENTANYL PF 100 MCG/2ML ONE (14:36)
[2021-04-06] MEDS ORDERED: VECURONIUM 10 MG IVPush ONE (16:00)
[2021-04-06] MEDS ORDERED: FENTANYL PF 100 MCG/2ML IVPush ONE (16:00)
[2021-04-06] MEDS: ALBUMIN HUMAN 25% 100 ML IV PRN (16:58)
[2021-04-06] MEDS ORDERED: DEXTROSE 70% IV SCH (17:00)
[2021-04-06] MEDS ORDERED: FAT EMULSIONS IV SCH (17:00)
[2021-04-06] MEDS ORDERED: AMINO ACID 10% IV SCH (17:00)
[2021-04-06] MEDS ORDERED: [UNRECOGNIZED DRUG - OTHER] IV SCH (17:00)
[2021-04-06] MEDS ORDERED: FILTER, DISP 1.2 MICRON FOR TPN/PVN IV PRN (17:00)
[2021-04-06] MEDS: LIDODERM REMOVE PATCH NOTE XX SCH (20:30)
[2021-04-07] MEDS: LINEZOLID PMX 600MG/300ML 300 ML IV SCH ×2 (01:17→13:00)
[2021-04-07] MEDS: MEROPENEM 1 GM in SODIUM CHLORIDE 0.9% 100 ML IV SCH ×3 (03:54→20:07)
[2021-04-07 05:18] LABS: MEAN CORPUSCULAR HEMOGLOBIN 30.5 pg (27.5-34.5); MEAN CORPUSCULAR HGB CONC 33.3 g/dL (33.2-36.2); PLATELET COUNT 200 x10^3/uL (130-400); RED BLOOD COUNT 2.61 x10^6/uL (4.38-5.82); RED CELL DISTRIBUTION WIDTH 15.6 % (9.4-14.8)
[2021-04-07 05:32] LABS: CHLORIDE 102 mmol/L (98-107)
[2021-04-07 05:40] LABS: ANION GAP 6 mmol/L (5-15); CALCIUM 7.6 mg/dL (8.5-10.1)
[2021-04-07 05:47] LABS: <PLATELET ESTIMATE> ADEQUATE; <PLT MORPHOLOGY> NORMAL PLT MORPH; ANISOCYTOSIS 1+; BAND#(MANUAL) 0.19 x10^3/uL; BANDS%(MANUAL) 2 % (0-7); EOS#(MANUAL) 0.09 x10^3/uL (0.0-0.4); EOS% (MANUAL) 1 % (1-7); LYMPH#(MANUAL) 0.65 x10^3/uL (1-3.4); LYMPHS% (MANUAL) 7 % (22-44); METAMYELOCYTES# (MANUAL) 0.19 x10^3/uL (0-0); METAMYELOCYTES% (MANUAL) 2 % (0-1); MONOS#(MANUAL) 0.84 x10^3/uL (0.3-2.7); MONOS% (MANUAL) 9 % (2-9); SEG#(MANUAL) 7.35 x10^3/uL (1.8-6.8); SEGS% (MANUAL) 79 % (42-75)
[2021-04-07] MEDS: PANTOPRAZOLE 40 MG IV IVPush SCH ×2 (09:05→21:20)
[2021-04-07] MEDS: LIDODERM 5% PATCH TD SCH (09:05)
[2021-04-07] MEDS: REGULAR INSULIN 100 UNITS in SODIUM CHLORIDE 0.9% 99 ML IV PRN ×3 (10:01→20:07)
[2021-04-07] MEDS: FENTANYL PF 1,000 MCG in SODIUM CHLORIDE 0.9% 80 ML IV PRN ×2 (10:06→18:22)
[2021-04-07] MEDS: FILTER, DISP 1.2 MICRON FOR TPN/PVN IV PRN (16:46)
[2021-04-07] MEDS ORDERED: AMINO ACID 10% IV SCH (17:00)
[2021-04-07] MEDS ORDERED: [UNRECOGNIZED DRUG - OTHER] IV SCH (17:00)
[2021-04-07] MEDS ORDERED: FAT EMULSIONS IV SCH (17:00)
[2021-04-07] MEDS ORDERED: DEXTROSE 70% IV SCH (17:00)
[2021-04-07] MEDS: MIDAZOLAM HCL 50 MG in SODIUM CHLORIDE 0.9% 40 ML IV PRN (18:55)
[2021-04-07] MEDS: LIDODERM REMOVE PATCH NOTE XX SCH (20:30)
[2021-04-08] MEDS: FENTANYL PF 1,000 MCG in SODIUM CHLORIDE 0.9% 80 ML IV PRN
[2021-04-08] MEDS: LINEZOLID PMX 600MG/300ML 300 ML IV SCH ×2 (01:01→13:56)
[2021-04-08] MEDS: MEROPENEM 1 GM in SODIUM CHLORIDE 0.9% 100 ML IV SCH ×3 (03:38→20:00)
[2021-04-08 04:26] LABS: MEAN CORPUSCULAR HEMOGLOBIN 30.9 pg (27.5-34.5); MEAN CORPUSCULAR HGB CONC 33.7 g/dL (33.2-36.2); MEAN PLATELET VOLUME 8.7 fL (7.4-10.4); PLATELET COUNT 192 x10^3/uL (130-400); RED BLOOD COUNT 2.52 x10^6/uL (4.38-5.82); RED CELL DISTRIBUTION WIDTH 15.9 % (9.4-14.8)
[2021-04-08 04:27] LABS: ANION GAP 5 mmol/L (5-15); CALCIUM 7.6 mg/dL (8.5-10.1); CHLORIDE 104 mmol/L (98-107); CREATININE 2.22 mg/dL (0.7-1.3); TRIGLYCERIDES 288 mg/dL (50-200)
[2021-04-08] MEDS: REGULAR INSULIN 100 UNITS in SODIUM CHLORIDE 0.9% 99 ML IV PRN ×2 (04:49→13:57)
[2021-04-08 04:57] LABS: BAND#(MANUAL) 0.74 x10^3/uL; BANDS%(MANUAL) 8 % (0-7); EOS#(MANUAL) 0.19 x10^3/uL (0.0-0.4); EOS% (MANUAL) 2 % (1-7); LYMPH#(MANUAL) 0.74 x10^3/uL (1-3.4); LYMPHS% (MANUAL) 8 % (22-44); METAMYELOCYTES# (MANUAL) 0.28 x10^3/uL (0-0); METAMYELOCYTES% (MANUAL) 3 % (0-1); MONOS#(MANUAL) 0.74 x10^3/uL (0.3-2.7); MONOS% (MANUAL) 8 % (2-9); MYELOCYTES# (MANUAL) 0.09 x10^3/uL (0-0); MYELOCYTES% (MANUAL) 1 % (0-0); SEG#(MANUAL) 6.51 x10^3/uL (1.8-6.8); SEGS% (MANUAL) 70 % (42-75)
[2021-04-08 04:58] LABS: ANISOCYTOSIS 1+
[2021-04-08 04:59] LABS: <PLATELET ESTIMATE> ADEQUATE; <PLT MORPHOLOGY> NORMAL PLT MORPH
[2021-04-08] MEDS: FENTANYL PF 2,500 MCG in SODIUM CHLORIDE 0.9% 200 ML IV PRN ×2 (06:04→17:30)
[2021-04-08] MEDS: PANTOPRAZOLE 40 MG IV IVPush SCH ×2 (09:16→20:50)
[2021-04-08] MEDS: LIDODERM 5% PATCH TD SCH (09:16)
[2021-04-08] MEDS ORDERED: OXYcodone/APAP 5/325MG TABLET PO PRN (10:30)
[2021-04-08] MEDS: ALBUMIN HUMAN 25% 100 ML IV PRN ×2 (10:40→12:07)
[2021-04-08] MEDS: HEPARIN 5,000 UNITS/ML, 1ML SQ SCH ×2 (12:19→18:51)
[2021-04-08] MEDS: MIDAZOLAM HCL 50 MG in SODIUM CHLORIDE 0.9% 40 ML IV PRN ×2 (12:50→23:21)
[2021-04-08] MEDS ORDERED: FAT EMULSIONS IV SCH ×2 (17:00)
[2021-04-08] MEDS ORDERED: [UNRECOGNIZED DRUG - OTHER] IV SCH (17:00)
[2021-04-08] MEDS ORDERED: [UNRECOGNIZED DRUG - OTHER] IV SCH (17:00)
[2021-04-08] MEDS ORDERED: AMINO ACID 10% IV SCH ×2 (17:00)
[2021-04-08] MEDS ORDERED: DEXTROSE 70% IV SCH ×2 (17:00)
[2021-04-08] MEDS: FILTER, DISP 1.2 MICRON FOR TPN/PVN IV PRN (17:29)
[2021-04-08] MEDS: LIDODERM REMOVE PATCH NOTE XX SCH (20:01)
[2021-04-09] MEDS: ACETAMINOPHEN 325 MG TABLET PO PRN (00:24)
[2021-04-09] MEDS: LINEZOLID PMX 600MG/300ML 300 ML IV SCH (00:25)
[2021-04-09] MEDS: REGULAR INSULIN 100 UNITS in SODIUM CHLORIDE 0.9% 99 ML IV PRN ×3 (01:25→18:15)
[2021-04-09] MEDS: HEPARIN 5,000 UNITS/ML, 1ML SQ SCH ×3 (02:25→17:24)
[2021-04-09] MEDS: MEROPENEM 1 GM in SODIUM CHLORIDE 0.9% 100 ML IV SCH ×3 (03:34→20:52)
[2021-04-09 04:35] LABS: MEAN CORPUSCULAR HEMOGLOBIN 31.2 pg (27.5-34.5); MEAN CORPUSCULAR HGB CONC 33.8 g/dL (33.2-36.2); MEAN PLATELET VOLUME 8.4 fL (7.4-10.4); PLATELET COUNT 187 x10^3/uL (130-400); RED BLOOD COUNT 2.53 x10^6/uL (4.38-5.82); RED CELL DISTRIBUTION WIDTH 15.5 % (9.4-14.8)
[2021-04-09 04:42] LABS: ANION GAP 3 mmol/L (5-15); CHLORIDE 105 mmol/L (98-107); CREATININE 1.64 mg/dL (0.7-1.3)
[2021-04-09 04:44] LABS: CALCIUM 8.2 mg/dL (8.5-10.1)
[2021-04-09] MEDS: MIDAZOLAM HCL 50 MG in SODIUM CHLORIDE 0.9% 40 ML IV PRN ×3 (04:49→18:19)
[2021-04-09 05:25] LABS: BANDS%(MANUAL) 1 % (0-7); EOS#(MANUAL) 0.29 x10^3/uL (0.0-0.4); EOS% (MANUAL) 3 % (1-7); LYMPH#(MANUAL) 0.69 x10^3/uL (1-3.4); LYMPHS% (MANUAL) 7 % (22-44); METAMYELOCYTES# (MANUAL) 0.29 x10^3/uL (0-0); METAMYELOCYTES% (MANUAL) 3 % (0-1); MONOS#(MANUAL) 1.27 x10^3/uL (0.3-2.7); MONOS% (MANUAL) 13 % (2-9); MYELOCYTES% (MANUAL) 1 % (0-0); SEG#(MANUAL) 7.06 x10^3/uL (1.8-6.8); SEGS% (MANUAL) 72 % (42-75)
[2021-04-09 05:26] LABS: <PLATELET ESTIMATE> ADEQUATE; <PLT MORPHOLOGY> NORMAL PLT MORPH; ANISOCYTOSIS 1+
[2021-04-09] MEDS ORDERED: SODIUM PHOSPHATE 20 MMOL in SODIUM CHLORIDE 0.9% 500 ML IV ONE (08:00)
[2021-04-09] MEDS: PANTOPRAZOLE 40 MG IV IVPush SCH ×2 (08:00→20:52)
[2021-04-09] MEDS: LIDODERM 5% PATCH TD SCH (08:00)
[2021-04-09] MEDS: NOREPINEPHRINE 32 MG in SODIUM CHLORIDE 0.9% 218 ML IV PRN (15:46)
[2021-04-09] MEDS: FAT EMULSIONS IV SCH ×4 (16:15→16:38)
[2021-04-09] MEDS: [UNRECOGNIZED DRUG - OTHER] IV SCH ×4 (16:15→16:38)
[2021-04-09] MEDS: AMINO ACID 10% IV SCH ×4 (16:15→16:38)
[2021-04-09] MEDS: DEXTROSE 70% IV SCH ×4 (16:15→16:38)
[2021-04-09] MEDS: FILTER, DISP 1.2 MICRON FOR TPN/PVN IV PRN (16:17)
[2021-04-09] MEDS: FENTANYL PF 2,500 MCG in SODIUM CHLORIDE 0.9% 200 ML IV PRN (16:18)
[2021-04-09] MEDS ORDERED: FAT EMULSIONS IV SCH (17:00)
[2021-04-09] MEDS ORDERED: [UNRECOGNIZED DRUG - OTHER] IV SCH (17:00)
[2021-04-09] MEDS ORDERED: AMINO ACID 10% IV SCH (17:00)
[2021-04-09] MEDS ORDERED: DEXTROSE 70% IV SCH (17:00)
[2021-04-09] MEDS: LIDODERM REMOVE PATCH NOTE XX SCH (20:30)
[2021-04-10] MEDS: HEPARIN 5,000 UNITS/ML, 1ML SQ SCH ×3 (02:12→18:08)
[2021-04-10] MEDS: FENTANYL PF 2,500 MCG in SODIUM CHLORIDE 0.9% 200 ML IV PRN ×2 (03:29→15:41)
[2021-04-10] MEDS: MIDAZOLAM HCL 50 MG in SODIUM CHLORIDE 0.9% 40 ML IV PRN ×3 (03:30→20:32)
[2021-04-10] MEDS: REGULAR INSULIN 100 UNITS in SODIUM CHLORIDE 0.9% 99 ML IV PRN ×3 (03:50→23:24)
[2021-04-10 04:10] LABS: MEAN CORPUSCULAR HEMOGLOBIN 30.9 pg (27.5-34.5); MEAN CORPUSCULAR HGB CONC 32.8 g/dL (33.2-36.2); MEAN PLATELET VOLUME 8.7 fL (7.4-10.4); PLATELET COUNT 212 x10^3/uL (130-400); RED BLOOD COUNT 2.42 x10^6/uL (4.38-5.82); RED CELL DISTRIBUTION WIDTH 15.7 % (9.4-14.8)
[2021-04-10 04:13] LABS: HCT (SEDRATE) 22.9 % (39.2-51.8)
[2021-04-10] MEDS: MEROPENEM 1 GM in SODIUM CHLORIDE 0.9% 100 ML IV SCH ×3 (04:17→20:31)
[2021-04-10 04:19] LABS: ALANINE AMINOTRANSFERASE 9 U/L (12-78); ALBUMIN 1.4 g/dL (3.4-5.0); ANION GAP 3 mmol/L (5-15); CALCIUM 8.1 mg/dL (8.5-10.1); CHLORIDE 108 mmol/L (98-107)
[2021-04-10 04:25] LABS: PREALBUMIN 7.6 mg/dL (20.0-40.0)
[2021-04-10 04:26] LABS: ALKALINE PHOSPHATASE 96 U/L (45-117); BILIRUBIN,TOTAL 0.8 mg/dL (0.2-1.0); CREATININE 1.76 mg/dL (0.7-1.3)
[2021-04-10 04:42] LABS: BAND#(MANUAL) 0.58 x10^3/uL; BANDS%(MANUAL) 5 % (0-7); EOS#(MANUAL) 0.35 x10^3/uL (0.0-0.4); EOS% (MANUAL) 3 % (1-7); LYMPH#(MANUAL) 0.69 x10^3/uL (1-3.4); LYMPHS% (MANUAL) 6 % (22-44); METAMYELOCYTES# (MANUAL) 0.12 x10^3/uL (0-0); METAMYELOCYTES% (MANUAL) 1 % (0-1); MONOS% (MANUAL) 13 % (2-9); SEG#(MANUAL) 8.28 x10^3/uL (1.8-6.8); SEGS% (MANUAL) 72 % (42-75)
[2021-04-10 04:43] LABS: <PLATELET ESTIMATE> ADEQUATE; <PLT MORPHOLOGY> NORMAL PLT MORPH; ANISOCYTOSIS 1+
[2021-04-10 04:46] LABS: SEDIMENTATION RATE > 120 mm/hr (0-10)
[2021-04-10] MEDS: PANTOPRAZOLE 40 MG IV IVPush SCH ×2 (09:27→20:31)
[2021-04-10] MEDS ORDERED: AMINO ACID 10% IV SCH ×2 (17:00)
[2021-04-10] MEDS ORDERED: DEXTROSE 70% IV SCH ×2 (17:00)
[2021-04-10] MEDS ORDERED: FAT EMULSIONS IV SCH ×2 (17:00)
[2021-04-10] MEDS ORDERED: [UNRECOGNIZED DRUG - OTHER] IV SCH (17:00)
[2021-04-10] MEDS ORDERED: [UNRECOGNIZED DRUG - OTHER] IV SCH (17:00)
[2021-04-10] MEDS: FILTER, DISP 1.2 MICRON FOR TPN/PVN IV PRN (17:09)
[2021-04-11] MEDS: MIDAZOLAM HCL 50 MG in SODIUM CHLORIDE 0.9% 40 ML IV PRN ×4 (02:37→21:19)
[2021-04-11] MEDS: FENTANYL PF 2,500 MCG in SODIUM CHLORIDE 0.9% 200 ML IV PRN ×2 (02:38→15:25)
[2021-04-11] MEDS: HEPARIN 5,000 UNITS/ML, 1ML SQ SCH ×3 (02:41→18:15)
[2021-04-11 04:13] LABS: BASOPHILS % (AUTO) 0 % (0-1); EOSINOPHILS % (AUTO) 5 % (1-7); LYMPHOCYTES % (AUTO) 10 % (22-44); MEAN CORPUSCULAR HEMOGLOBIN 30.4 pg (27.5-34.5); MEAN CORPUSCULAR HGB CONC 32.4 g/dL (33.2-36.2); MEAN PLATELET VOLUME 8.7 fL (7.4-10.4); MONOCYTES % (AUTO) 9 % (2-9); NEUTROPHILS % (AUTO) 76 % (42-75); PLATELET COUNT 220 x10^3/uL (130-400); RED BLOOD COUNT 2.24 x10^6/uL (4.38-5.82); RED CELL DISTRIBUTION WIDTH 15.9 % (9.4-14.8)
[2021-04-11 04:25] LABS: CALCIUM 8.3 mg/dL (8.5-10.1); CREATININE 1.63 mg/dL (0.7-1.3)
[2021-04-11 04:30] LABS: ANION GAP 4 mmol/L (5-15); CHLORIDE 107 mmol/L (98-107)
[2021-04-11] MEDS: MEROPENEM 1 GM in SODIUM CHLORIDE 0.9% 100 ML IV SCH ×3 (04:35→20:37)
[2021-04-11 06:28] VITALS: BP 113/57
[2021-04-11 06:45] VITALS: BP 93/45
[2021-04-11 08:21] VITALS: BP 103/55
[2021-04-11] MEDS: PANTOPRAZOLE 40 MG IV IVPush SCH ×2 (09:55→20:37)
[2021-04-11] MEDS: FUROSEMIDE 40 MG/4 ML IV SCH ×2 (09:55→17:21)
[2021-04-11] MEDS: REGULAR INSULIN 100 UNITS in SODIUM CHLORIDE 0.9% 99 ML IV PRN ×2 (09:56→20:31)
[2021-04-11 10:00] VITALS: BP 101/51
[2021-04-11] MEDS: ALBUMIN HUMAN 25% 100 ML IV PRN (13:33)
[2021-04-11] MEDS: MICAFUNGIN 100 MG in SODIUM CHLORIDE 0.9% 100 ML IV SCH (15:04)
[2021-04-11] MEDS ORDERED: [UNRECOGNIZED DRUG - OTHER] IV SCH ×2 (17:00)
[2021-04-11] MEDS ORDERED: DEXTROSE 70% IV SCH ×2 (17:00)
[2021-04-11] MEDS ORDERED: FAT EMULSIONS IV SCH ×2 (17:00)
[2021-04-11] MEDS ORDERED: AMINO ACID 10% IV SCH ×2 (17:00)
[2021-04-11] MEDS: FILTER, DISP 1.2 MICRON FOR TPN/PVN IV PRN (17:21)
[2021-04-12] MEDS: MIDAZOLAM HCL 50 MG in SODIUM CHLORIDE 0.9% 40 ML IV PRN ×3 (01:10→14:54)
[2021-04-12] MEDS: FENTANYL PF 2,500 MCG in SODIUM CHLORIDE 0.9% 200 ML IV PRN ×2 (01:41→12:31)
[2021-04-12] MEDS: HEPARIN 5,000 UNITS/ML, 1ML SQ SCH ×3 (02:07→17:36)
[2021-04-12 04:30] LABS: BASOPHILS % (AUTO) 0 % (0-1); EOSINOPHILS % (AUTO) 6 % (1-7); LYMPHOCYTES % (AUTO) 8 % (22-44); MEAN CORPUSCULAR HEMOGLOBIN 31.4 pg (27.5-34.5); MEAN CORPUSCULAR HGB CONC 33.5 g/dL (33.2-36.2); MEAN PLATELET VOLUME 8.8 fL (7.4-10.4); MONOCYTES % (AUTO) 9 % (2-9); NEUTROPHILS % (AUTO) 78 % (42-75); PLATELET COUNT 226 x10^3/uL (130-400); RED BLOOD COUNT 2.34 x10^6/uL (4.38-5.82)
[2021-04-12] MEDS: MEROPENEM 1 GM in SODIUM CHLORIDE 0.9% 100 ML IV SCH ×3 (04:39→19:43)
[2021-04-12] MEDS: REGULAR INSULIN 100 UNITS in SODIUM CHLORIDE 0.9% 99 ML IV PRN ×2 (04:40→15:39)
[2021-04-12 08:11] LABS: ANION GAP 5 mmol/L (5-15); CALCIUM 7.9 mg/dL (8.5-10.1); CHLORIDE 107 mmol/L (98-107); CREATININE 1.37 mg/dL (0.7-1.3)
[2021-04-12] MEDS: FUROSEMIDE 40 MG/4 ML IV SCH ×2 (08:58→17:36)
[2021-04-12] MEDS: RISPERIDONE 0.5 MG TABLET PO SCH ×2 (08:58→19:43)
[2021-04-12] MEDS: PANTOPRAZOLE 40 MG IV IVPush SCH ×2 (08:58→19:43)
[2021-04-12] MEDS: ALBUMIN HUMAN 25% 100 ML IV PRN (09:58)
[2021-04-12] MEDS: MICAFUNGIN 100 MG in SODIUM CHLORIDE 0.9% 100 ML IV SCH (14:54)
--- NOTE | 2021-04-12 15:11 | NUR ---
TF per RD recs (04/12): Pivot 1.5 w/ end goal rate of 75 mL/hr; Flush with Beneprotein 2-packets, twice per day. - Recommend SLOW increase in TF, 10 mL/hr Q12-24 hr as tolerated. Addendum: 04/12/21 at [address] Amended: Links added.
[2021-04-12] MEDS ORDERED: [UNRECOGNIZED DRUG - OTHER] IV SCH (17:00)
[2021-04-12] MEDS ORDERED: AMINO ACID 10% IV SCH (17:00)
[2021-04-12] MEDS ORDERED: DEXTROSE 70% IV SCH (17:00)
[2021-04-12] MEDS ORDERED: FAT EMULSIONS IV SCH (17:00)
[2021-04-12] MEDS: FILTER, DISP 1.2 MICRON FOR TPN/PVN IV PRN (17:37)
[2021-04-13] MEDS: HEPARIN 5,000 UNITS/ML, 1ML SQ SCH ×3 (01:41→18:30)
[2021-04-13] MEDS: MIDAZOLAM HCL 50 MG in SODIUM CHLORIDE 0.9% 40 ML IV PRN (01:41)
[2021-04-13] MEDS: FENTANYL PF 2,500 MCG in SODIUM CHLORIDE 0.9% 200 ML IV PRN ×3 (01:42→20:06)
[2021-04-13] MEDS: REGULAR INSULIN 100 UNITS in SODIUM CHLORIDE 0.9% 99 ML IV PRN ×3 (02:00→20:07)
[2021-04-13] MEDS ORDERED: MIDAZOLAM HCL 100 MG in SODIUM CHLORIDE 0.9% 80 ML IV PRN (02:00)
[2021-04-13] MEDS: MEROPENEM 1 GM in SODIUM CHLORIDE 0.9% 100 ML IV SCH ×3 (04:00→20:05)
[2021-04-13 05:32] LABS: MEAN CORPUSCULAR HEMOGLOBIN 30.7 pg (27.5-34.5); MEAN PLATELET VOLUME 9.3 fL (7.4-10.4); PLATELET COUNT 257 x10^3/uL (130-400); RED BLOOD COUNT 2.41 x10^6/uL (4.38-5.82); RED CELL DISTRIBUTION WIDTH 15.6 % (9.4-14.8)
[2021-04-13 05:39] LABS: ANION GAP 5 mmol/L (5-15); CALCIUM 8.4 mg/dL (8.5-10.1); CHLORIDE 106 mmol/L (98-107); CREATININE 1.46 mg/dL (0.7-1.3)
[2021-04-13 06:08] LABS: EOS#(MANUAL) 0.66 x10^3/uL (0.0-0.4); EOS% (MANUAL) 5 % (1-7); METAMYELOCYTES# (MANUAL) 0.13 x10^3/uL (0-0); METAMYELOCYTES% (MANUAL) 1 % (0-1)
[2021-04-13 06:09] LABS: BAND#(MANUAL) 0.92 x10^3/uL; BANDS%(MANUAL) 7 % (0-7); LYMPH#(MANUAL) 0.79 x10^3/uL (1-3.4); LYMPHS% (MANUAL) 6 % (22-44); MONOS#(MANUAL) 0.79 x10^3/uL (0.3-2.7); MONOS% (MANUAL) 6 % (2-9); SEGS% (MANUAL) 75 % (42-75)
[2021-04-13 06:10] LABS: ANISOCYTOSIS 1+; POLYCHROMASIA 1+
[2021-04-13 06:11] LABS: <PLATELET ESTIMATE> ADEQUATE; <PLT MORPHOLOGY> NORMAL PLT MORPH
[2021-04-13] MEDS: FUROSEMIDE 40 MG/4 ML IV SCH ×2 (08:00→17:44)
[2021-04-13] MEDS: METOCLOPRAMIDE 5 MG/ML, 2ML IV SCH ×3 (09:39→22:35)
[2021-04-13] MEDS: PANTOPRAZOLE 40 MG IV IVPush SCH ×2 (09:39→22:34)
[2021-04-13] MEDS: RISPERIDONE 0.5 MG TABLET PO SCH ×2 (09:40→22:35)
[2021-04-13] MEDS: NOREPINEPHRINE 32 MG in SODIUM CHLORIDE 0.9% 218 ML IV PRN (13:40)
[2021-04-13] MEDS: MICAFUNGIN 100 MG in SODIUM CHLORIDE 0.9% 100 ML IV SCH (15:30)
[2021-04-13] MEDS ORDERED: DEXTROSE 70% IV SCH (17:00)
[2021-04-13] MEDS ORDERED: AMINO ACID 10% IV SCH (17:00)
[2021-04-13] MEDS ORDERED: FAT EMULSIONS IV SCH (17:00)
[2021-04-13] MEDS ORDERED: [UNRECOGNIZED DRUG - OTHER] IV SCH (17:00)
[2021-04-13] MEDS: ACETAMINOPHEN 325 MG TABLET PO PRN (22:35)
[2021-04-13] MEDS: MIDAZOLAM HCL 100 MG in SODIUM CHLORIDE 0.9% 80 ML IV PRN (23:47)
[2021-04-14] MEDS: METOCLOPRAMIDE 5 MG/ML, 2ML IV SCH ×4 (02:58→20:26)
[2021-04-14] MEDS: HEPARIN 5,000 UNITS/ML, 1ML SQ SCH ×3 (02:59→20:26)
[2021-04-14] MEDS: MEROPENEM 1 GM in SODIUM CHLORIDE 0.9% 100 ML IV SCH ×3 (03:03→20:26)
[2021-04-14] MEDS: FENTANYL PF 2,500 MCG in SODIUM CHLORIDE 0.9% 200 ML IV PRN ×2 (03:40→15:48)
[2021-04-14] MEDS: REGULAR INSULIN 100 UNITS in SODIUM CHLORIDE 0.9% 99 ML IV PRN ×3 (03:41→21:42)
[2021-04-14 04:20] LABS: MEAN CORPUSCULAR HEMOGLOBIN 30.9 pg (27.5-34.5); MEAN CORPUSCULAR HGB CONC 33.1 g/dL (33.2-36.2); MEAN PLATELET VOLUME 8.9 fL (7.4-10.4); PLATELET COUNT 266 x10^3/uL (130-400); RED BLOOD COUNT 2.28 x10^6/uL (4.38-5.82); RED CELL DISTRIBUTION WIDTH 15.8 % (9.4-14.8)
[2021-04-14 05:11] LABS: <PLATELET ESTIMATE> ADEQUATE; <PLT MORPHOLOGY> NORMAL PLT MORPH; ANISOCYTOSIS 1+; BAND#(MANUAL) 1.05 x10^3/uL; BANDS%(MANUAL) 8 % (0-7); EOS#(MANUAL) 0.92 x10^3/uL (0.0-0.4); EOS% (MANUAL) 7 % (1-7); LYMPH#(MANUAL) 1.05 x10^3/uL (1-3.4); LYMPHS% (MANUAL) 8 % (22-44); METAMYELOCYTES# (MANUAL) 0.13 x10^3/uL (0-0); METAMYELOCYTES% (MANUAL) 1 % (0-1); MONOS#(MANUAL) 0.66 x10^3/uL (0.3-2.7); MONOS% (MANUAL) 5 % (2-9); POLYCHROMASIA 1+; SEGS% (MANUAL) 71 % (42-75)
[2021-04-14] MEDS: FUROSEMIDE 40 MG/4 ML IV SCH ×2 (09:28→16:48)
[2021-04-14] MEDS: PANTOPRAZOLE 40 MG IV IVPush SCH ×2 (09:28→20:26)
[2021-04-14] MEDS: RISPERIDONE 0.5 MG TABLET PO SCH ×2 (09:29→20:27)
--- NOTE | 2021-04-14 11:56 | NUR ---
TF recs (04/14): Trickle feeds only for now Pivot 1.5 @10 mL/hr per MD. Addendum: 04/14/21 at [address] Amended: Links added.
[2021-04-14 12:29] LABS: CHLORIDE 108 mmol/L (98-107)
[2021-04-14 12:33] LABS: CREATININE 1.35 mg/dL (0.7-1.3)
[2021-04-14 12:56] LABS: ANION GAP 3 mmol/L (5-15)
[2021-04-14] MEDS: morphine SULFATE 10 MG/ML, 1ML IVPush PRN (13:09)
[2021-04-14] MEDS: ACETAMINOPHEN 325 MG TABLET PO PRN (13:13)
[2021-04-14] MEDS: MIDAZOLAM HCL 100 MG in SODIUM CHLORIDE 0.9% 80 ML IV PRN ×2 (13:22→21:41)
[2021-04-14] MEDS: MICAFUNGIN 100 MG in SODIUM CHLORIDE 0.9% 100 ML IV SCH (14:49)
[2021-04-14] MEDS: LINEZOLID PMX 600MG/300ML 300 ML IV SCH (16:44)
[2021-04-14] MEDS: FILTER, DISP 1.2 MICRON FOR TPN/PVN IV PRN (16:45)
[2021-04-14] MEDS ORDERED: DEXTROSE 70% IV SCH ×2 (17:00)
[2021-04-14] MEDS ORDERED: [UNRECOGNIZED DRUG - OTHER] IV SCH ×2 (17:00)
[2021-04-14] MEDS ORDERED: FAT EMULSIONS IV SCH ×2 (17:00)
[2021-04-14] MEDS ORDERED: AMINO ACID 10% IV SCH ×2 (17:00)
[2021-04-15] MEDS: FENTANYL PF 2,500 MCG in SODIUM CHLORIDE 0.9% 200 ML IV PRN ×3 (02:21→21:50)
[2021-04-15] MEDS: HEPARIN 5,000 UNITS/ML, 1ML SQ SCH ×3 (03:12→19:59)
[2021-04-15] MEDS: METOCLOPRAMIDE 5 MG/ML, 2ML IV SCH ×4 (03:12→20:00)
[2021-04-15] MEDS: MEROPENEM 1 GM in SODIUM CHLORIDE 0.9% 100 ML IV SCH ×3 (03:14→20:22)
[2021-04-15] MEDS: LINEZOLID PMX 600MG/300ML 300 ML IV SCH ×2 (03:49→18:38)
[2021-04-15 04:12] LABS: MEAN CORPUSCULAR HEMOGLOBIN 30.7 pg (27.5-34.5); MEAN CORPUSCULAR HGB CONC 32.6 g/dL (33.2-36.2); MEAN PLATELET VOLUME 9.2 fL (7.4-10.4); PLATELET COUNT 274 x10^3/uL (130-400); RED BLOOD COUNT 2.11 x10^6/uL (4.38-5.82); RED CELL DISTRIBUTION WIDTH 16.3 % (9.4-14.8)
[2021-04-15 04:21] LABS: ANION GAP 2 mmol/L (5-15); CHLORIDE 109 mmol/L (98-107); CREATININE 1.49 mg/dL (0.7-1.3)
[2021-04-15 04:49] LABS: BAND#(MANUAL) 0.12 x10^3/uL; BANDS%(MANUAL) 1 % (0-7); BASOS#(MANUAL) 0.12 x10^3/uL (0-0.1); BASOS% (MANUAL) 1 % (0-1); EOS#(MANUAL) 1.55 x10^3/uL (0.0-0.4); EOS% (MANUAL) 13 % (1-7); LYMPH#(MANUAL) 1.07 x10^3/uL (1-3.4); LYMPHS% (MANUAL) 9 % (22-44); MONOS#(MANUAL) 0.24 x10^3/uL (0.3-2.7); MONOS% (MANUAL) 2 % (2-9); MYELOCYTES# (MANUAL) 0.12 x10^3/uL (0-0); MYELOCYTES% (MANUAL) 1 % (0-0); SEG#(MANUAL) 8.69 x10^3/uL (1.8-6.8); SEGS% (MANUAL) 73 % (42-75)
[2021-04-15 04:50] LABS: <PLATELET ESTIMATE> ADEQUATE; <PLT MORPHOLOGY> NORMAL PLT MORPH; ANISOCYTOSIS 1+; POLYCHROMASIA 1+; TOXIC GRAN 1+
[2021-04-15 06:40] VITALS: BP 120/61
[2021-04-15] MEDS: REGULAR INSULIN 100 UNITS in SODIUM CHLORIDE 0.9% 99 ML IV PRN ×2 (06:43→14:16)
[2021-04-15] MEDS: MIDAZOLAM HCL 100 MG in SODIUM CHLORIDE 0.9% 80 ML IV PRN ×2 (06:44→14:16)
[2021-04-15 07:00] VITALS: BP 110/61
[2021-04-15] MEDS: PANTOPRAZOLE 40 MG IV IVPush SCH ×2 (08:19→19:59)
[2021-04-15] MEDS: RISPERIDONE 0.5 MG TABLET PO SCH (08:19)
[2021-04-15] MEDS: FUROSEMIDE 40 MG/4 ML IV SCH ×2 (08:19→18:39)
[2021-04-15 08:30] VITALS: BP 107/62
[2021-04-15 09:30] VITALS: BP 114/65
[2021-04-15] MEDS ORDERED: HALOPERIDOL 5 MG/ML IV PRN (12:00)
[2021-04-15] MEDS: MICAFUNGIN 100 MG in SODIUM CHLORIDE 0.9% 100 ML IV SCH (14:17)
[2021-04-15] MEDS: PROPOFOL 100 ML IV PRN ×3 (16:19→21:50)
[2021-04-15] MEDS ORDERED: [UNRECOGNIZED DRUG - OTHER] IV SCH (17:00)
[2021-04-15] MEDS ORDERED: DEXTROSE 70% IV SCH (17:00)
[2021-04-15] MEDS ORDERED: AMINO ACID 10% IV SCH (17:00)
[2021-04-15] MEDS ORDERED: FAT EMULSIONS IV SCH (17:00)
[2021-04-15] MEDS: FILTER, DISP 1.2 MICRON FOR TPN/PVN IV PRN (18:43)
[2021-04-16] MEDS: PROPOFOL 100 ML IV PRN ×8 (00:42→22:04)
[2021-04-16] MEDS: REGULAR INSULIN 100 UNITS in SODIUM CHLORIDE 0.9% 99 ML IV PRN ×2 (01:04→12:09)
[2021-04-16] MEDS: NOREPINEPHRINE 32 MG in SODIUM CHLORIDE 0.9% 218 ML IV PRN (01:25)
[2021-04-16] MEDS: METOCLOPRAMIDE 5 MG/ML, 2ML IV SCH (02:58)
[2021-04-16] MEDS: HEPARIN 5,000 UNITS/ML, 1ML SQ SCH ×3 (03:05→20:45)
[2021-04-16] MEDS: MEROPENEM 1 GM in SODIUM CHLORIDE 0.9% 100 ML IV SCH ×3 (03:05→20:43)
[2021-04-16 03:26] LABS: MEAN CORPUSCULAR HEMOGLOBIN 30.7 pg (27.5-34.5); MEAN CORPUSCULAR HGB CONC 33.4 g/dL (33.2-36.2); MEAN PLATELET VOLUME 9.3 fL (7.4-10.4); PLATELET COUNT 301 x10^3/uL (130-400); RED BLOOD COUNT 2.41 x10^6/uL (4.38-5.82); RED CELL DISTRIBUTION WIDTH 15.9 % (9.4-14.8)
[2021-04-16 03:29] LABS: ANION GAP 5 mmol/L (5-15); CALCIUM 7.9 mg/dL (8.5-10.1); CHLORIDE 106 mmol/L (98-107); CREATININE 1.43 mg/dL (0.7-1.3)
[2021-04-16 03:54] LABS: <PLATELET ESTIMATE> ADEQUATE; ANISOCYTOSIS 1+; BAND#(MANUAL) 0.22 x10^3/uL; BANDS%(MANUAL) 2 % (0-7); EOS#(MANUAL) 2.42 x10^3/uL (0.0-0.4); EOS% (MANUAL) 22 % (1-7); LYMPH#(MANUAL) 0.44 x10^3/uL (1-3.4); LYMPHS% (MANUAL) 4 % (22-44); METAMYELOCYTES# (MANUAL) 0.11 x10^3/uL (0-0); METAMYELOCYTES% (MANUAL) 1 % (0-1); MONOS#(MANUAL) 0.66 x10^3/uL (0.3-2.7); MONOS% (MANUAL) 6 % (2-9); MYELOCYTES# (MANUAL) 0.33 x10^3/uL (0-0); MYELOCYTES% (MANUAL) 3 % (0-0); POLYCHROMASIA 1+; SEG#(MANUAL) 6.82 x10^3/uL (1.8-6.8); SEGS% (MANUAL) 62 % (42-75); TOXIC GRAN 1+
[2021-04-16 03:55] LABS: <PLT MORPHOLOGY> NORMAL PLT MORPH
[2021-04-16] MEDS: LINEZOLID PMX 600MG/300ML 300 ML IV SCH ×2 (04:14→16:31)
[2021-04-16] MEDS: MIDAZOLAM HCL 100 MG in SODIUM CHLORIDE 0.9% 80 ML IV PRN ×2 (04:15→12:09)
[2021-04-16] MEDS: FUROSEMIDE 40 MG/4 ML IV SCH ×2 (07:54→18:04)
[2021-04-16] MEDS: PANTOPRAZOLE 40 MG IV IVPush SCH ×2 (07:54→22:05)
[2021-04-16] MEDS: FENTANYL PF 2,500 MCG in SODIUM CHLORIDE 0.9% 200 ML IV PRN (12:08)
[2021-04-16] MEDS: INSULIN LISPRO 100 UNITS/ML, PEN SQ-INSULIN SCH ×3 (15:00→22:46)
[2021-04-16] MEDS: MICAFUNGIN 100 MG in SODIUM CHLORIDE 0.9% 100 ML IV SCH (15:09)
[2021-04-16] MEDS: INSULIN GLARGINE 100 UNITS/ML, PEN SQ-INSULIN SCH (15:11)
[2021-04-16] MEDS ORDERED: [UNRECOGNIZED DRUG - OTHER] IV SCH (17:00)
[2021-04-16] MEDS ORDERED: STERILE WATER IV SCH (17:00)
[2021-04-16] MEDS ORDERED: DEXTROSE 70% IV SCH (17:00)
[2021-04-16] MEDS ORDERED: AMINO ACID 10% IV SCH (17:00)
[2021-04-16] MEDS: FILTER, DISP 1.2 MICRON FOR TPN/PVN IV PRN (18:01)
[2021-04-17] MEDS: PROPOFOL 100 ML IV PRN ×13 (02:43→23:48)
[2021-04-17] MEDS: HEPARIN 5,000 UNITS/ML, 1ML SQ SCH ×3 (03:17→20:43)
[2021-04-17] MEDS: INSULIN GLARGINE 100 UNITS/ML, PEN SQ-INSULIN SCH ×2 (03:24→15:34)
[2021-04-17] MEDS: INSULIN LISPRO 100 UNITS/ML, PEN SQ-INSULIN SCH ×6 (03:25→22:29)
[2021-04-17 03:35] LABS: BASOPHILS % (AUTO) 1 % (0-1); EOSINOPHILS % (AUTO) 30 % (1-7); LYMPHOCYTES % (AUTO) 5 % (22-44); MEAN CORPUSCULAR HEMOGLOBIN 30.7 pg (27.5-34.5); MEAN CORPUSCULAR HGB CONC 33.1 g/dL (33.2-36.2); MONOCYTES % (AUTO) 4 % (2-9); NEUTROPHILS % (AUTO) 60 % (42-75); PLATELET COUNT 289 x10^3/uL (130-400); RED BLOOD COUNT 2.34 x10^6/uL (4.38-5.82); RED CELL DISTRIBUTION WIDTH 16.2 % (9.4-14.8)
[2021-04-17] MEDS: MEROPENEM 1 GM in SODIUM CHLORIDE 0.9% 100 ML IV SCH ×3 (03:44→20:44)
[2021-04-17 03:47] LABS: ALANINE AMINOTRANSFERASE 14 U/L (12-78); ALBUMIN 1.3 g/dL (3.4-5.0); ANION GAP 4 mmol/L (5-15); CALCIUM 7.9 mg/dL (8.5-10.1); CHLORIDE 107 mmol/L (98-107); CREATININE 1.33 mg/dL (0.7-1.3)
[2021-04-17 03:52] LABS: ALKALINE PHOSPHATASE 101 U/L (45-117); BILIRUBIN,TOTAL 0.6 mg/dL (0.2-1.0); PREALBUMIN 7.2 mg/dL (20.0-40.0); TOTAL PROTEIN 6.9 g/dL (6.4-8.2)
[2021-04-17] MEDS: LINEZOLID PMX 600MG/300ML 300 ML IV SCH ×2 (04:22→16:25)
[2021-04-17] MEDS: ACETAMINOPHEN 325 MG TABLET PO PRN ×3 (05:35→15:29)
[2021-04-17] MEDS ORDERED: SODIUM CHLORIDE 0.9% 250 ML IV SCH (07:00)
[2021-04-17] MEDS: FUROSEMIDE 40 MG/4 ML IV SCH ×2 (07:24→18:03)
[2021-04-17] MEDS ORDERED: LIDOCAINE-MPF 1%, 5ML ONE (08:34)
[2021-04-17] MEDS: PANTOPRAZOLE 40 MG IV IVPush SCH ×2 (09:46→20:46)
[2021-04-17] MEDS: MIDODRINE 5 MG TABLET NG SCH ×3 (09:47→20:47)
[2021-04-17] MEDS: FENTANYL PF 2,500 MCG in SODIUM CHLORIDE 0.9% 200 ML IV PRN (11:52)
[2021-04-17 12:20] VITALS: BP 89/33
[2021-04-17 12:40] VITALS: BP 98/34
[2021-04-17 13:29] VITALS: BP 86/28
[2021-04-17 14:30] VITALS: BP 127/52
[2021-04-17] MEDS: MICAFUNGIN 100 MG in SODIUM CHLORIDE 0.9% 100 ML IV SCH (15:11)
[2021-04-17 15:30] VITALS: BP 132/60
[2021-04-17] MEDS ORDERED: [UNRECOGNIZED DRUG - OTHER] IV SCH (17:00)
[2021-04-17] MEDS ORDERED: DEXTROSE 70% IV SCH (17:00)
[2021-04-17] MEDS ORDERED: AMINO ACID 10% IV SCH (17:00)
[2021-04-17] MEDS ORDERED: STERILE WATER IV SCH (17:00)
[2021-04-17] MEDS: FILTER, DISP 1.2 MICRON FOR TPN/PVN IV PRN (18:03)
[2021-04-18] MEDS: FENTANYL PF 2,500 MCG in SODIUM CHLORIDE 0.9% 200 ML IV PRN ×2 (01:34→14:01)
[2021-04-18] MEDS: PROPOFOL 100 ML IV PRN ×4 (01:53→06:32)
[2021-04-18] MEDS: INSULIN GLARGINE 100 UNITS/ML, PEN SQ-INSULIN SCH ×2 (03:48→15:32)
[2021-04-18] MEDS: INSULIN LISPRO 100 UNITS/ML, PEN SQ-INSULIN SCH ×6 (03:49→23:03)
[2021-04-18] MEDS: MEROPENEM 1 GM in SODIUM CHLORIDE 0.9% 100 ML IV SCH ×3 (04:59→20:53)
[2021-04-18] MEDS: HEPARIN 5,000 UNITS/ML, 1ML SQ SCH ×3 (04:59→20:56)
[2021-04-18 05:05] LABS: ALBUMIN 1.1 g/dL (3.4-5.0); CALCIUM 7.1 mg/dL (8.5-10.1); CHLORIDE 106 mmol/L (98-107)
[2021-04-18 05:10] LABS: ALKALINE PHOSPHATASE 179 U/L (45-117); ANION GAP 5 mmol/L (5-15); BILIRUBIN,TOTAL 2.1 mg/dL (0.2-1.0); CREATININE 1.61 mg/dL (0.7-1.3)
[2021-04-18] MEDS: LINEZOLID PMX 600MG/300ML 300 ML IV SCH ×2 (05:16→16:51)
[2021-04-18 05:24] LABS: TOTAL PROTEIN 6.6 g/dL (6.4-8.2)
[2021-04-18 05:40] LABS: MEAN CORPUSCULAR HEMOGLOBIN 32.7 pg (27.5-34.5); MEAN CORPUSCULAR HGB CONC 35.7 g/dL (33.2-36.2); MEAN PLATELET VOLUME 9.3 fL (7.4-10.4); PLATELET COUNT 271 x10^3/uL (130-400); RED BLOOD COUNT 2.37 x10^6/uL (4.38-5.82); RED CELL DISTRIBUTION WIDTH 16.7 % (9.4-14.8)
[2021-04-18 05:48] LABS: ALANINE AMINOTRANSFERASE 43 U/L (12-78)
[2021-04-18 06:05] LABS: BAND#(MANUAL) 2.24 x10^3/uL; BANDS%(MANUAL) 34 % (0-7); EOS#(MANUAL) 0.99 x10^3/uL (0.0-0.4); EOS% (MANUAL) 15 % (1-7); LYMPH#(MANUAL) 0.46 x10^3/uL (1-3.4); LYMPHS% (MANUAL) 7 % (22-44); METAMYELOCYTES# (MANUAL) 0.26 x10^3/uL (0-0); METAMYELOCYTES% (MANUAL) 4 % (0-1); MONOS#(MANUAL) 0.07 x10^3/uL (0.3-2.7); MONOS% (MANUAL) 1 % (2-9); MYELOCYTES# (MANUAL) 0.07 x10^3/uL (0-0); MYELOCYTES% (MANUAL) 1 % (0-0); SEG#(MANUAL) 2.51 x10^3/uL (1.8-6.8); SEGS% (MANUAL) 38 % (42-75)
[2021-04-18 06:06] LABS: ANISOCYTOSIS 1+; POLYCHROMASIA 1+
[2021-04-18 06:07] LABS: <PLATELET ESTIMATE> ADEQUATE; <PLT MORPHOLOGY> NORMAL PLT MORPH
[2021-04-18] MEDS: ACETAMINOPHEN 325 MG TABLET PO PRN ×2 (08:43→22:54)
[2021-04-18] MEDS: MIDODRINE 5 MG TABLET NG SCH ×3 (08:44→20:56)
[2021-04-18] MEDS: PANTOPRAZOLE 40 MG IV IVPush SCH ×2 (08:44→20:53)
[2021-04-18] MEDS: MIDAZOLAM HCL 100 MG in SODIUM CHLORIDE 0.9% 80 ML IV PRN ×2 (09:33→16:55)
--- NOTE | 2021-04-18 10:31 | NUR ---
TF per [facility] recs (04/18): Vital AF 1.2 at trickle feeds only @10 mL/hr Addendum: 04/18/21 at [address] Amended: Links added.
[2021-04-18] MEDS ORDERED: ZIPRASIDONE 20 MG INJ IM ONE (13:00)
[2021-04-18] MEDS: QUETIAPINE 25MG TABLET PO SCH ×2 (13:19→20:56)
[2021-04-18] MEDS: MICAFUNGIN 100 MG in SODIUM CHLORIDE 0.9% 100 ML IV SCH (14:07)
[2021-04-18] MEDS ORDERED: FILTER, DISP 1.2 MICRON FOR TPN/PVN IV PRN (17:00)
[2021-04-18] MEDS ORDERED: DEXTROSE 70% IV SCH (17:00)
[2021-04-18] MEDS ORDERED: STERILE WATER IV SCH (17:00)
[2021-04-18] MEDS ORDERED: AMINO ACID 10% IV SCH (17:00)
[2021-04-18] MEDS ORDERED: [UNRECOGNIZED DRUG - OTHER] IV SCH (17:00)
[2021-04-18] MEDS: morphine SULFATE 10 MG/ML, 1ML IVPush PRN (20:55)
[2021-04-19] MEDS: FENTANYL PF 2,500 MCG in SODIUM CHLORIDE 0.9% 200 ML IV PRN ×2 (00:02→13:02)
[2021-04-19] MEDS: MEROPENEM 1 GM in SODIUM CHLORIDE 0.9% 100 ML IV SCH ×3 (03:05→19:44)
[2021-04-19] MEDS: INSULIN GLARGINE 100 UNITS/ML, PEN SQ-INSULIN SCH ×3 (03:15→20:32)
[2021-04-19] MEDS: INSULIN LISPRO 100 UNITS/ML, PEN SQ-INSULIN SCH ×6 (03:16→23:06)
[2021-04-19] MEDS: HEPARIN 5,000 UNITS/ML, 1ML SQ SCH ×3 (04:44→20:23)
[2021-04-19] MEDS: LINEZOLID PMX 600MG/300ML 300 ML IV SCH ×2 (04:44→16:15)
[2021-04-19] MEDS: QUETIAPINE 25MG TABLET PO SCH (04:45)
[2021-04-19] MEDS: MIDAZOLAM HCL 100 MG in SODIUM CHLORIDE 0.9% 80 ML IV PRN ×3 (04:54→21:49)
[2021-04-19 05:19] LABS: MEAN CORPUSCULAR HGB CONC 34.9 g/dL (33.2-36.2); MEAN PLATELET VOLUME 9.6 fL (7.4-10.4); PLATELET COUNT 202 x10^3/uL (130-400); RED BLOOD COUNT 2.33 x10^6/uL (4.38-5.82)
[2021-04-19 05:30] LABS: CHLORIDE 105 mmol/L (98-107)
[2021-04-19 05:39] LABS: ALANINE AMINOTRANSFERASE 74 U/L (12-78); ALKALINE PHOSPHATASE 210 U/L (45-117); ANION GAP 6 mmol/L (5-15); BILIRUBIN,TOTAL 3.1 mg/dL (0.2-1.0); CALCIUM 7.4 mg/dL (8.5-10.1); TOTAL PROTEIN 6.7 g/dL (6.4-8.2)
[2021-04-19] MEDS: morphine SULFATE 10 MG/ML, 1ML IVPush PRN (05:43)
[2021-04-19 05:50] LABS: BAND#(MANUAL) 1.19 x10^3/uL; BANDS%(MANUAL) 17 % (0-7); EOS#(MANUAL) 2.17 x10^3/uL (0.0-0.4); EOS% (MANUAL) 31 % (1-7); LYMPH#(MANUAL) 0.98 x10^3/uL (1-3.4); LYMPHS% (MANUAL) 14 % (22-44); METAMYELOCYTES# (MANUAL) 0.07 x10^3/uL (0-0); METAMYELOCYTES% (MANUAL) 1 % (0-1); MONOS#(MANUAL) 0.14 x10^3/uL (0.3-2.7); MONOS% (MANUAL) 2 % (2-9); SEG#(MANUAL) 2.45 x10^3/uL (1.8-6.8); SEGS% (MANUAL) 35 % (42-75)
[2021-04-19 05:51] LABS: <PLATELET ESTIMATE> ADEQUATE; <PLT MORPHOLOGY> NORMAL PLT MORPH; ANISOCYTOSIS 1+; POLYCHROMASIA 1+
[2021-04-19] MEDS: PANTOPRAZOLE 40 MG IV IVPush SCH ×2 (09:37→20:24)
[2021-04-19] MEDS: METOCLOPRAMIDE 5 MG/ML, 2ML IV SCH ×3 (09:38→20:24)
[2021-04-19] MEDS: MIDODRINE 5 MG TABLET NG SCH ×3 (09:38→20:24)
[2021-04-19] MEDS: FUROSEMIDE 20 MG/2 ML IV SCH ×2 (11:14→19:59)
[2021-04-19] MEDS ORDERED: QUETIAPINE 100MG TABLET ONE (12:15)
[2021-04-19] MEDS: QUETIAPINE 25MG TABLET NG SCH ×2 (12:17→20:23)
[2021-04-19] MEDS: MICAFUNGIN 100 MG in SODIUM CHLORIDE 0.9% 100 ML IV SCH (14:37)
[2021-04-19] MEDS: ACETAMINOPHEN 325 MG TABLET PO PRN (16:15)
[2021-04-19] MEDS ORDERED: STERILE WATER IV SCH (17:00)
[2021-04-19] MEDS ORDERED: AMINO ACID 10% IV SCH (17:00)
[2021-04-19] MEDS ORDERED: [UNRECOGNIZED DRUG - OTHER] IV SCH (17:00)
[2021-04-19] MEDS ORDERED: DEXTROSE 70% IV SCH (17:00)
[2021-04-19] MEDS ORDERED: FILTER, DISP 1.2 MICRON FOR TPN/PVN IV PRN (17:00)
[2021-04-19] MEDS ORDERED: METOLAZONE 2.5 MG TABLET PO ONE (20:00)
[2021-04-19] MEDS ORDERED: FUROSEMIDE 120 MG in SODIUM CHLORIDE 0.9% 50 ML IV ONE (20:30)
[2021-04-19] MEDS: NOREPINEPHRINE 32 MG in SODIUM CHLORIDE 0.9% 218 ML IV PRN (20:50)
[2021-04-19] MEDS ORDERED: FUROSEMIDE 100 MG/10 ML IV ONE (21:00)
[2021-04-20] MEDS: FENTANYL PF 2,500 MCG in SODIUM CHLORIDE 0.9% 200 ML IV PRN (00:59)
[2021-04-20] MEDS: INSULIN LISPRO 100 UNITS/ML, PEN SQ-INSULIN SCH ×6 (03:37→23:12)
[2021-04-20] MEDS: METOCLOPRAMIDE 5 MG/ML, 2ML IV SCH ×4 (03:37→21:07)
[2021-04-20] MEDS: HEPARIN 5,000 UNITS/ML, 1ML SQ SCH ×3 (03:37→19:54)
[2021-04-20] MEDS: MEROPENEM 1 GM in SODIUM CHLORIDE 0.9% 100 ML IV SCH ×3 (03:38→19:54)
[2021-04-20 03:58] LABS: MEAN CORPUSCULAR HEMOGLOBIN 30.8 pg (27.5-34.5); MEAN CORPUSCULAR HGB CONC 33.6 g/dL (33.2-36.2); MEAN PLATELET VOLUME 10.3 fL (7.4-10.4); PLATELET COUNT 189 x10^3/uL (130-400); RED BLOOD COUNT 2.36 x10^6/uL (4.38-5.82); RED CELL DISTRIBUTION WIDTH 17.1 % (9.4-14.8)
[2021-04-20 04:05] LABS: ALANINE AMINOTRANSFERASE 56 U/L (12-78); ALBUMIN 0.9 g/dL (3.4-5.0); ANION GAP 6 mmol/L (5-15); CALCIUM 7.7 mg/dL (8.5-10.1); CHLORIDE 105 mmol/L (98-107); CREATININE 3.94 mg/dL (0.7-1.3)
[2021-04-20 04:09] LABS: ALKALINE PHOSPHATASE 190 U/L (45-117); BILIRUBIN,TOTAL 2.5 mg/dL (0.2-1.0); TOTAL PROTEIN 6.8 g/dL (6.4-8.2)
[2021-04-20] MEDS: LINEZOLID PMX 600MG/300ML 300 ML IV SCH ×2 (04:19→16:08)
[2021-04-20] MEDS: QUETIAPINE 25MG TABLET NG SCH ×3 (04:22→19:54)
[2021-04-20 04:30] LABS: ANISOCYTOSIS 1+; BAND#(MANUAL) 1.92 x10^3/uL; BANDS%(MANUAL) 20 % (0-7); EOS% (MANUAL) 26 % (1-7); LYMPHS% (MANUAL) 1 % (22-44); MONOS#(MANUAL) 0.29 x10^3/uL (0.3-2.7); MONOS% (MANUAL) 3 % (2-9); POLYCHROMASIA 1+; SEGS% (MANUAL) 50 % (42-75)
[2021-04-20 04:31] LABS: <PLATELET ESTIMATE> ADEQUATE; <PLT MORPHOLOGY> NORMAL PLT MORPH
[2021-04-20] MEDS: FUROSEMIDE 20 MG/2 ML IV SCH ×3 (08:35→21:07)
[2021-04-20] MEDS: PANTOPRAZOLE 40 MG IV IVPush SCH ×2 (08:35→21:07)
[2021-04-20] MEDS: MIDODRINE 5 MG TABLET NG SCH ×3 (08:35→21:08)
[2021-04-20] MEDS: INSULIN GLARGINE 100 UNITS/ML, PEN SQ-INSULIN SCH ×2 (08:38→21:08)
[2021-04-20] MEDS: MIDAZOLAM HCL 100 MG in SODIUM CHLORIDE 0.9% 80 ML IV PRN (09:22)
[2021-04-20] MEDS: ACETAMINOPHEN 325 MG TABLET PO PRN (11:12)
[2021-04-20] MEDS: ALBUMIN HUMAN 25% 100 ML IV SCH ×3 (11:16→23:37)
[2021-04-20] MEDS ORDERED: INSULIN GLARGINE 100 UNITS/ML, PEN SQ-INSULIN SCH ×2 (12:00→14:00)
[2021-04-20] MEDS ORDERED: CATHFLO-ALTEPLASE 2 MG/2 ML CATHFLUSH ONE (14:00)
[2021-04-20] MEDS: MICAFUNGIN 100 MG in SODIUM CHLORIDE 0.9% 100 ML IV SCH (14:24)
[2021-04-20] MEDS: NOREPINEPHRINE 32 MG in SODIUM CHLORIDE 0.9% 218 ML IV PRN (14:39)
[2021-04-20] MEDS ORDERED: AMINO ACID 10% IV SCH (17:00)
[2021-04-20] MEDS ORDERED: DEXTROSE 70% IV SCH (17:00)
[2021-04-20] MEDS ORDERED: STERILE WATER IV SCH (17:00)
[2021-04-20] MEDS ORDERED: FILTER, DISP 1.2 MICRON FOR TPN/PVN IV PRN (17:00)
[2021-04-20] MEDS ORDERED: [UNRECOGNIZED DRUG - OTHER] IV SCH (17:00)
[2021-04-21] MEDS: NOREPINEPHRINE 32 MG in SODIUM CHLORIDE 0.9% 218 ML IV PRN (02:35)
[2021-04-21] MEDS: INSULIN LISPRO 100 UNITS/ML, PEN SQ-INSULIN SCH ×2 (03:00→06:27)
[2021-04-21] MEDS: METOCLOPRAMIDE 5 MG/ML, 2ML IV SCH (03:01)
[2021-04-21] MEDS: MEROPENEM 1 GM in SODIUM CHLORIDE 0.9% 100 ML IV SCH (03:34)
[2021-04-21] MEDS: QUETIAPINE 25MG TABLET NG SCH (03:34)
[2021-04-21 03:35] LABS: MEAN CORPUSCULAR HEMOGLOBIN 29.5 pg (27.5-34.5); MEAN CORPUSCULAR HGB CONC 31.9 g/dL (33.2-36.2); MEAN PLATELET VOLUME 10.4 fL (7.4-10.4); PLATELET COUNT 170 x10^3/uL (130-400); RED BLOOD COUNT 2.44 x10^6/uL (4.38-5.82); RED CELL DISTRIBUTION WIDTH 17.2 % (9.4-14.8)
[2021-04-21 03:46] LABS: ALBUMIN 1.4 g/dL (3.4-5.0); ANION GAP 13 mmol/L (5-15); CALCIUM 7.7 mg/dL (8.5-10.1); CHLORIDE 101 mmol/L (98-107)
[2021-04-21 03:49] LABS: ALANINE AMINOTRANSFERASE 40 U/L (12-78); ALKALINE PHOSPHATASE 184 U/L (45-117); BILIRUBIN,TOTAL 3.2 mg/dL (0.2-1.0); CREATININE 4.09 mg/dL (0.7-1.3); TOTAL PROTEIN 7.2 g/dL (6.4-8.2)
[2021-04-21 03:52] LABS: MICROSCOPIC INDICATED
[2021-04-21 04:02] LABS: CHLORIDE,URINE RANDOM 26 mmol/L; POTASSIUM,URINE RANDOM 44 mmol/L; SODIUM,URINE RANDOM 39 mmol/L
[2021-04-21] MEDS: LINEZOLID PMX 600MG/300ML 300 ML IV SCH (04:04)
[2021-04-21] MEDS: HEPARIN 5,000 UNITS/ML, 1ML SQ SCH (04:04)
[2021-04-21] MEDS ORDERED: SODIUM BICARB 8.4%, 50ML SYRINGE ONE (04:35)
[2021-04-21] MEDS ORDERED: SODIUM BICARB 8.4%, 50ML SYRINGE IVPush STA (04:35)
[2021-04-21 04:37] LABS: <PLATELET ESTIMATE> ADEQUATE; ANISOCYTOSIS 1+; BAND#(MANUAL) 3.61 x10^3/uL; BANDS%(MANUAL) 28 % (0-7); BASOS#(MANUAL) 0.13 x10^3/uL (0-0.1); BASOS% (MANUAL) 1 % (0-1); EOS#(MANUAL) 1.55 x10^3/uL (0.0-0.4); EOS% (MANUAL) 12 % (1-7); GIANT PLATELETS 1+; LARGE PLATELETS 1+; LYMPH#(MANUAL) 0.13 x10^3/uL (1-3.4); LYMPHS% (MANUAL) 1 % (22-44); METAMYELOCYTES# (MANUAL) 1.42 x10^3/uL (0-0); METAMYELOCYTES% (MANUAL) 11 % (0-1); MONOS#(MANUAL) 0.77 x10^3/uL (0.3-2.7); MONOS% (MANUAL) 6 % (2-9); MYELOCYTES# (MANUAL) 0.39 x10^3/uL (0-0); MYELOCYTES% (MANUAL) 3 % (0-0); POLYCHROMASIA 1+; SEGS% (MANUAL) 38 % (42-75)
[2021-04-21 04:38] LABS: TOXIC GRAN 1+
[2021-04-21] MEDS: ALBUMIN HUMAN 25% 100 ML IV SCH (05:34)
[2021-04-21] MEDS ORDERED: REGULAR INSULIN 100 UNITS in SODIUM CHLORIDE 0.9% 99 ML IV PRN (07:00)
[2021-04-21] MEDS ORDERED: SODIUM BICARB 8.4%, 50ML SYRINGE IVPush ONE (07:30)
[2021-04-21] MEDS ORDERED: CEFTRIAXONE 2 GM in DEXTROSE 5% 50 ML IVPB SCH (07:30)
[2021-04-21] MEDS ORDERED: EPINEPHRINE 5 MG in SODIUM CHLORIDE 0.9% 245 ML IV PRN ×2 (08:30→09:00)
[2021-04-21] MEDS ORDERED: DEXTROSE 5% IVPB SCH (09:00)
[2021-04-21] MEDS ORDERED: [UNRECOGNIZED DRUG - OTHER] IVPB SCH (09:00)
== END 2021-04-21 12:00 | DRG 3 ==
LOC: ED 20:39 → EDIP 22:48 → 4NW 03-27 00:12 → 3N 03-27 07:36 → CCU 03-28 02:40 → 4NE 04-01 15:40 → CCU 04-02 12:50
PROVIDERS: ADMIT Family Medicine; ATTEND Internal Medicine
PROC: 0T9B70Z Drainage of Bladder with Drainage Device, Via Natural or Artificial Opening (ICD-10-PCS; 2021-03-26)
PROC: 00NX0ZZ Release Thoracic Spinal Cord, Open Approach (ICD-10-PCS; 2021-03-28)
PROC: 009U3ZZ Drainage of Spinal Canal, Percutaneous Approach (ICD-10-PCS; 2021-03-28)
PROC: 02HV33Z Insertion of Infusion Device into Superior Vena Cava, Percutaneous Approach (ICD-10-PCS; 2021-03-30)
PROC: B548ZZA Ultrasonography of Superior Vena Cava, Guidance (ICD-10-PCS; 2021-03-30)
PROC: 5A1955Z Respiratory Ventilation, Greater than 96 Consecutive Hours (ICD-10-PCS; 2021-04-02)
PROC: 0BH17EZ Insertion of Endotracheal Airway into Trachea, Via Natural or Artificial Opening (ICD-10-PCS; 2021-04-02)
PROC: 0DTF0ZZ Resection of Right Large Intestine, Open Approach (ICD-10-PCS; principal; 2021-04-02 13:30)
PROC: 02HV33Z Insertion of Infusion Device into Superior Vena Cava, Percutaneous Approach (ICD-10-PCS; 2021-04-03)
PROC: B543ZZA Ultrasonography of Right Jugular Veins, Guidance (ICD-10-PCS; 2021-04-03)
PROC: 5A1D70Z Performance of Urinary Filtration, Intermittent, Less than 6 Hours Per Day (ICD-10-PCS; 2021-04-03)
PROC: 05HY33Z Insertion of Infusion Device into Upper Vein, Percutaneous Approach (ICD-10-PCS; 2021-04-03)
PROC: 5A1D70Z Performance of Urinary Filtration, Intermittent, Less than 6 Hours Per Day (ICD-10-PCS; 2021-04-04)
PROC: 0BJ08ZZ Inspection of Tracheobronchial Tree, Via Natural or Artificial Opening Endoscopic (ICD-10-PCS; 2021-04-06)
PROC: 0B113F4 Bypass Trachea to Cutaneous with Tracheostomy Device, Percutaneous Approach (ICD-10-PCS; 2021-04-06)
PROC: 5A1D70Z Performance of Urinary Filtration, Intermittent, Less than 6 Hours Per Day (ICD-10-PCS; 2021-04-08)
PROC: 5A1D70Z Performance of Urinary Filtration, Intermittent, Less than 6 Hours Per Day (ICD-10-PCS; 2021-04-10)
PROC: 30233N1 Transfusion of Nonautologous Red Blood Cells into Peripheral Vein, Percutaneous Approach (ICD-10-PCS; 2021-04-11)
PROC: 5A1D70Z Performance of Urinary Filtration, Intermittent, Less than 6 Hours Per Day (ICD-10-PCS; 2021-04-12)
PROC: 0B9J8ZZ Drainage of Left Lower Lung Lobe, Via Natural or Artificial Opening Endoscopic (ICD-10-PCS; 2021-04-16)
PROC: 0B9G8ZZ Drainage of Left Upper Lung Lobe, Via Natural or Artificial Opening Endoscopic (ICD-10-PCS; 2021-04-16)
PROC: 0W9F30Z Drainage of Abdominal Wall with Drainage Device, Percutaneous Approach (ICD-10-PCS; 2021-04-17)
PROC: BW40ZZZ Ultrasonography of Abdomen (ICD-10-PCS; 2021-04-17)
PROC: 0B9J8ZZ Drainage of Left Lower Lung Lobe, Via Natural or Artificial Opening Endoscopic (ICD-10-PCS; 2021-04-19)
PROC: 0B9J8ZZ Drainage of Left Lower Lung Lobe, Via Natural or Artificial Opening Endoscopic (ICD-10-PCS; 2021-04-20)
PROC: 0B9F8ZZ Drainage of Right Lower Lung Lobe, Via Natural or Artificial Opening Endoscopic (ICD-10-PCS; 2021-04-20)
DX: A40.8 Other streptococcal sepsis (principal); G06.1 Intraspinal abscess and granuloma; G93.41 Metabolic encephalopathy; J96.01 Acute respiratory failure with hypoxia; K55.049 Acute infarction of large intestine, extent unspecified; K63.1 Perforation of intestine (nontraumatic); R65.21 Severe sepsis with septic shock; N17.0 Acute kidney failure with tubular necrosis; Z68.45 Body mass index [BMI] 70 or greater, adult; E87.0 Hyperosmolality and hypernatremia; E87.1 Hypo-osmolality and hyponatremia; J95.851 Ventilator associated pneumonia; K56.609 Unspecified intestinal obstruction, unspecified as to partial versus complete obstruction; K59.2 Neurogenic bowel, not elsewhere classified; K63.0 Abscess of intestine; L03.311 Cellulitis of abdominal wall; T85.79XA Infection and inflammatory reaction due to other internal prosthetic devices, implants and grafts, initial encounter; Z66 Do not resuscitate; D63.8 Anemia in other chronic diseases classified elsewhere; E03.9 Hypothyroidism, unspecified; E11.65 Type 2 diabetes mellitus with hyperglycemia; E66.01 Morbid (severe) obesity due to excess calories; E78.1 Pure hyperglyceridemia; E78.5 Hyperlipidemia, unspecified; E83.39 Other disorders of phosphorus metabolism; E83.42 Hypomagnesemia; E83.51 Hypocalcemia; E87.5 Hyperkalemia; E88.09 Other disorders of plasma-protein metabolism, not elsewhere classified; I10 Essential (primary) hypertension; I46.9 Cardiac arrest, cause unspecified; K42.9 Umbilical hernia without obstruction or gangrene; M48.061 Spinal stenosis, lumbar region without neurogenic claudication; Y83.2 Surgical operation with anastomosis, bypass or graft as the cause of abnormal reaction of the patient, or of later complication, without mention of misadventure at the time of the procedure; R33.9 Retention of urine, unspecified; K43.9 Ventral hernia without obstruction or gangrene; Y84.8 Other medical procedures as the cause of abnormal reaction of the patient, or of later complication, without mention of misadventure at the time of the procedure; Z74.01 Bed confinement status; Z80.1 Family history of malignant neoplasm of trachea, bronchus and lung; Z82.49 Family history of ischemic heart disease and other diseases of the circulatory system; Z88.0 Allergy status to penicillin; Z88.2 Allergy status to sulfonamides; Z99.2 Dependence on renal dialysis; Z99.3 Dependence on wheelchair; Z79.2 Long term (current) use of antibiotics
CPT/HCPCS: 36415; 36600; 74018; 76000; 87106; 96365; 96375; 96376; 99285; C8929; J3475; J3490; 31622; 31624; 36556; 36573; 49405; 49406; 70460; 71045; 72129; 72132; 72158; 74174; 74176; 74177; 76705; 76937; 76942; 80048; 80053; 80061; 80076; 81001; 82248; 82436; 82550; 82803; 82962; 83036; 83605; 83690; 83735; 84100; 84133; 84134; 84300; 84443; 84478; 84550; 85014; 85018; 85025; 85610; 85651; 85730; 86140; 86317; 86704; 86706; 86850; 86900; 86923; 87015; 87040; 87070; 87075; 87077; 87081; 87086; 87102; 87116; 87181; 87186; 87205; 87206; 87340; 87635; 88108; 88112; 88305; 88307; 88312; 90935; 93005; 94002; 94003; 94640; 94690; C1894; G0378; J0171; J0690; J0696; J0878; J1100; J1170; J1335; J1644; J1650; J1815; J1940; J2020; J2185; J2248; J2250; J2405; J2704; J3010; J3370; J3486; J7030; J7070; P9045; P9047; Q9957; Q9967; A9575; C1729; C1751; C9113; J0360; J0610; J1630; J1642; J2060; J2270; J2370; J2765; J3420; J7040; J7050; J7120; L3999; P9016